=== PATIENT | female | born 1940 | race Caucasian/White ===

== ENCOUNTER → 2018-12-04 13:36 | Outpatient (CLI) | payer MEDICARE, OTHER, SELFPAY | PROVIDERS: Family Provider Internal Medicine; PCP Internal Medicine; Visit Provider Internal Medicine | DX: M85.851 Other specified disorders of bone density and structure, right thigh (principal); Z78.0 Asymptomatic menopausal state | CPT/HCPCS: 77080 ==

== ENCOUNTER → 2019-10-29 08:34 | Outpatient (CLI) | payer MEDICARE, OTHER, SELFPAY ==
--- NOTE | 2019-10-29 | DI.MG.S_ITS ---
BILATERAL DIGITAL SCREENING MAMMOGRAM 3D/2D WITH CAD: 10/29/2019 CLINICAL: Routine screening. Comparison is made to exam dated: 04/06/2014 [facility]. There are scattered fibroglandular elements in both breasts. Current study was also evaluated with a Computer Aided Detection (CAD) system. No significant masses, calcifications, or other findings are seen in either breast. There has been no significant interval change. IMPRESSION: NEGATIVE There is no mammographic evidence of malignancy. A 1 year screening mammogram is recommended. This exam was interpreted at Station ID: [id number]. NOTE: For mammograms, a report in lay terms will be sent to the patient. Approximately 15% of breast malignancies will not be visualized mammographically. In the management of a palpable breast mass, a negative mammogram must not discourage biopsy of a clinically suspicious lesion. Electronically Signed By: Cristina langford/parisa:10/29/2019 09:15:01 letter sent: Normal Exam ACR BI-RADS Category 1: Negative 3341F
== END ==
PROVIDERS: PCP Internal Medicine; Visit Provider Internal Medicine
DX: Z12.31 Encounter for screening mammogram for malignant neoplasm of breast (principal)
CPT/HCPCS: 77063; 77067

== ENCOUNTER → 2020-11-12 11:55 | Outpatient (CLI) | payer MEDICARE, OTHER, SELFPAY ==
--- NOTE | 2020-11-12 | DI.MG.S_ITS ---
BILATERAL DIGITAL SCREENING MAMMOGRAM 3D/2D WITH CAD: 11/12/2020 CLINICAL: Routine screening. Comparison is made to exams dated: 10/29/2019 mammogram, 04/06/2014 mammogram - [facility], 11/05/2012 mammogram, and 05/09/2010 mammogram - [facility]. There are scattered fibroglandular elements in both breasts. Current study was also evaluated with a Computer Aided Detection (CAD) system. There are benign calcifications in the right breast. There also are benign vascular calcifications in both breasts. No significant masses, calcifications, or other findings are seen in either breast. There has been no significant interval change. IMPRESSION: BENIGN There is no mammographic evidence of malignancy. A 1 year screening mammogram is recommended. This exam was interpreted at Station ID: [id number]. NOTE: For mammograms, a report in lay terms will be sent to the patient. Approximately 15% of breast malignancies will not be visualized mammographically. In the management of a palpable breast mass, a negative mammogram must not discourage biopsy of a clinically suspicious lesion. Electronically Signed By: Pete schultz/parisa:11/12/2020 14:34:11 letter sent: Normal Exam ACR BI-RADS Category 2: Benign Finding(s) 3342F
== END ==
PROVIDERS: PCP Internal Medicine; Referring Provider Internal Medicine; Visit Provider Internal Medicine
DX: Z12.31 Encounter for screening mammogram for malignant neoplasm of breast (principal)
CPT/HCPCS: 77063; 77067

== ENCOUNTER → 2021-02-11 19:13 | Outpatient (ROUT) | payer MEDICARE, OTHER, SELFPAY ==
[2021-02-11 20:06] LABS: Aspartate Aminotransferase 28 IU/L (14-36); Blood Urea Nitrogen 17 mg/dL (7-17); Calcium 9.7 mg/dL (8.4-10.2); Carbon Dioxide 25 mmol/L (22-32); Chloride 101 mmol/L (98-107); Cholesterol 224 mg/dL (140-199); Estimated Glomerular Filt Rate 53.1 mL/min (>60); Glucose 89 mg/dL (80-110); HDL Cholesterol 99 mg/dL (40-60); HEMOLYSIS < 15 (0-50); LDL Cholesterol Calculated 100 mg/dL (<100); Potassium 4.6 mmol/L (3.4-5.1); Sodium 135 mmol/L (137-145); Triglycerides 126 mg/dL (35-150)
== END ==
PROVIDERS: PCP Internal Medicine; Visit Provider Internal Medicine
DX: E78.2 Mixed hyperlipidemia (principal)
CPT/HCPCS: 80048; 80061; 84450

== ENCOUNTER → 2021-11-22 10:54 | Outpatient (CLI) | payer MEDICARE, OTHER, SELFPAY ==
--- NOTE | 2021-11-22 | DI.MG.S_ITS ---
BILATERAL DIGITAL SCREENING MAMMOGRAM 3D/2D WITH CAD: 11/22/2021 CLINICAL: Routine screening. Comparison is made to exams dated: 11/12/2020 mammogram, 10/29/2019 mammogram, and 04/06/2014 mammogram - [facility]. There are scattered fibroglandular elements in both breasts. Current study was also evaluated with a Computer Aided Detection (CAD) system. There are benign calcifications in the right breast. There also are benign vascular calcifications in both breasts. No significant masses, calcifications, or other findings are seen in either breast. There has been no significant interval change. IMPRESSION: BENIGN There is no mammographic evidence of malignancy. A 1 year screening mammogram is recommended. This exam was interpreted at Station ID: [id number]. NOTE: For mammograms, a report in lay terms will be sent to the patient. Approximately 15% of breast malignancies will not be visualized mammographically. In the management of a palpable breast mass, a negative mammogram must not discourage biopsy of a clinically suspicious lesion. Electronically Signed By: Jimmy gibson/parisa:11/22/2021 13:18:48 letter sent: Normal Exam ACR BI-RADS Category 2: Benign Finding(s) 3342F
== END ==
PROVIDERS: PCP Internal Medicine; Referring Provider Internal Medicine; Visit Provider Internal Medicine
DX: Z12.31 Encounter for screening mammogram for malignant neoplasm of breast (principal)
CPT/HCPCS: 77063; 77067

== ENCOUNTER → 2022-03-02 10:59 | Outpatient (CLI) | payer MEDICARE, OTHER, SELFPAY ==
--- NOTE | 2022-03-02 | DI.RAD.S_ITS ---
PROCEDURE: XR CHEST 2V INDICATIONS: Cough, unspecified TECHNIQUE: 2 views of the chest were acquired. COMPARISON: None. FINDINGS: Surgical changes and devices: None. Lungs and pleura: Lungs are clear. No pleural effusions or pneumothorax. Mediastinum: Mediastinal contours are normal. Heart size is normal. Bones and chest wall: No suspicious bony abnormalities. Soft tissues appear unremarkable. IMPRESSION: No acute cardiopulmonary process demonstrated radiographically. Dictated by: Richie Ng M.D. on 03/02/2022 at 15:18 Approved by: Richie Ng M.D. on 03/02/2022 at 15:22
== END ==
PROVIDERS: PCP Internal Medicine; Referring Provider Internal Medicine; Visit Provider Internal Medicine
DX: R05.9 Cough, unspecified (principal)
CPT/HCPCS: 71046

== ENCOUNTER 2023-03-11 13:22 | Inpatient (IN) | payer MEDICARE, OTHER, SELFPAY ==
[2023-03-11] VITALS (44 sets, daily range): BP systolic 92–131; BP diastolic 51–83; PULSE 84–125; RESP 16–35; TEMP 37.2–37.3; O2SAT 93–98; BMI 20.1
--- NOTE | 2023-03-11 13:32 | DI.RAD.S_ITS ---
PROCEDURE: XR CHEST 1V INDICATIONS: sepsis TECHNIQUE: One view of the chest was acquired. COMPARISON: [facility], CR, XR CHEST 2V, 03/02/2022, 10:53. FINDINGS: Surgical changes and devices: None. Lungs and pleura: Minimal left basilar atelectasis and or infiltrate. Remainder of the lungs and pleural spaces are clear. Mediastinum: Mediastinal contours appear normal. Heart size is normal. Bones and chest wall: No suspicious bony lesions. Overlying soft tissues appear unremarkable. IMPRESSION: Minimal left basilar atelectasis and or infiltrate Approved by: Facundo Dave M.D. on 03/11/2023 at 13:39
[2023-03-11 13:49] LABS: Add Manual Diff / Slide Review NO; Basophils Absolute Auto 0 /uL (0-100); Eosinophils Absolute Auto 300 /uL (0-450); Eosinophils Percent Auto 2.7 % (2-4); Hematocrit 44.3 % (36-46); Hemoglobin 15.6 g/dL (12.0-16.0); Lymphocytes Absolute Auto 400 /uL (1100-4500); Lymphocytes Percent Auto 3.7 % (25-40); Mean Corpuscular HGB Conc 35.1 % (30-36); Mean Corpuscular Hemoglobin 31.5 PG (26-34); Mean Corpuscular Volume 89.5 fL (80-100); Monocytes Absolute Auto 300 /uL (0-900); Neutrophils Absolute Auto 9500 /uL (1500-7000); Neutrophils Percent Auto 90.6 % (50-75); Platelet Count 190 X10^3/uL (150-400); Red Blood Cell Count 4.95 X10^6/uL (4.0-5.2); White Blood Cell Count 10.5 X10^3/uL (4.5-11.0)
--- NOTE | 2023-03-11 13:53 | ED_ITS ---
HPI - Weakness General Chief complaint: Weakness Stated complaint: sent by [facility], weak, low B/P Time Seen by Provider: 03/11/23 13:31 Source: family Mode of arrival: Wheelchair History of Present Illness HPI Narrative: 82-year-old female nonsmoker presents from the walk-in clinic for evaluation generalized weakness and concern for sepsis. The patient has been feeling generally weak and unwell over the course of the week and largely absent of any specific symptoms. She denies runny nose, sore throat or cough. She is had no chest pain or shortness of breath. She denies nausea, vomiting or diarrhea and has no urinary complaints such as dysuria, frequency or urgency. She does have a dermatologic condition and had been taking course of steroids and school age program associate put her on a course of minocycline as well but denies any other medication change or dietary change. She denies headache, blurred vision or neck pain. She has no other specific complaints. She just states she does not feel quite right Related Data Allergies Allergy/AdvReac Type Severity Reaction Status Date / Time fluorouracil [FLUOROURACIL] Allergy Intermediate SKINRX Verified 03/11/23 15:13 minocycline AdvReac Intermediate fatigue Verified 03/11/23 15:13 and nausea Review of Systems Review of Systems Narrative: GENERAL: See HPI HEENT: Denies sinus pain, ear pain, sore throat, difficulty swallowing, dizziness. RESPIRATORY: Denies dyspnea, cough, wheezing, hemoptysis, sputum. CARDIOVASCULAR: Denies chest pain, palpitations, orthopnea, edema, GASTROINTESTINAL: Denies nausea, vomiting, abdominal pain, diarrhea, constipation, melena. : Denies dysuria, frequency, incontinence, hematuria, urinary retention. MUSCULOSKELETAL: denies weakness, joint pain, or bony pain SKIN: Denies rash, skin lesions, or other NEUROLOGIC: See HPI PSYCHIATRIC: No concerning psychosocial issues. 12 point review of systems is negative except for those stated above Patient History Social History Smoking Status: Never smoker Smoking Status: Never smoker Exam Narrative Exam Narrative: GENERAL: [82] year old patient appears stated age. Well-developed patient, in mild distress. HEAD: Atraumatic. Normocephalic. EYES: Pupils equal round and reactive. Extraocular motions intact. No scleral icterus. No injection or drainage. ENT: Dry mucous membranes Nose without bleeding, purulent drainage. Throat without erythema, tonsillar hypertrophy or exudate. Airway patent. NECK: Trachea midline. Non tender CARDIOVASCULAR: Regular rate and rhythm without murmurs, gallops, or rubs. RESPIRATORY: Clear to auscultation. Breath sounds equal bilaterally. No wheezes, rales, or rhonchi. GASTROINTESTINAL: Abdomen soft, non-tender, nondistended. EXTREMITIES: No edema or joint tenderness. BACK: Nontender without deformity or crepitance. No flank tenderness. NEURO: AOx3. SKIN: Poor skin turgor No rash or erythema of visible areas Initial Vital Signs Initial Vital Signs: Vital Signs Temperature 99.2 F 03/11/23 13:29 Pulse Rate 125 H 03/11/23 13:29 Respiratory Rate 18 03/11/23 13:29 Blood Pressure 131/83 03/11/23 13:29 Pulse Oximetry 95 03/11/23 13:29 Oxygen Delivery Method Room Air 03/11/23 13:29 Course Orders Ordered: ED Orders 03/11/23 11:41 Ictotest Urine Stat Urinalysis and Microscopic Stat Urine Culture Stat 03/11/23 13:32 XR chest 1V Stat 03/11/23 13:38 Complete Blood Count AUTO DIFF Stat Comprehensive Metabolic Panel Stat Lactate (Lactic Acid) Stat Magnesium Urgent Procalcitonin Stat Troponin & CK Cardiac Panel Stat 03/11/23 13:45 Blood Culture Stat 03/11/23 13:57 EKG-12 Lead Stat 03/11/23 14:10 Creatinine Urine Random Stat Sodium Urine Random Stat 03/11/23 15:20 Respiratory Panel (Film Array) Stat Lactated Ringer's (Lactated Ringers) 1,545.84 mls @ 515.28 mls/hr 30 ml/kg infuse over 3 hr (1545.84 ml) IV NOW ONE Stop: 03/11/23 16:56 Last Admin: 03/11/23 14:16 Dose: 515.28 mls/hr Documented By: RB Discontinued Medications Ceftriaxone Sodium 2,000 mg/ (Sodium Chloride) 100 mls @ 200 mls/hr IV NOW ONE Stop: 03/11/23 13:59 Last Infusion: 03/11/23 15:00 Dose: 0 mls/hr Documented By: Admin: 03/11/23 14:16 Dose: 200 mls/hr Documented By: RB Azithromycin 500 mg/ Dextrose 250 mls @ 250 mls/hr IV NOW ONE Stop: 03/11/23 15:35 Vital Signs Vital signs: Vital Signs - 8 hr 03/11/23 13:29 03/11/23 13:33 03/11/23 13:45 Temperature 99.2 F Pulse Rate 125 H Respiratory Rate 18 Blood Pressure 131/83 131/83 119/62 Pulse Oximetry 95 Oxygen Delivery Method Room Air 03/11/23 13:45 03/11/23 13:50 03/11/23 13:50 Temperature Pulse Rate 105 H 112 H Respiratory Rate 24 Blood Pressure 99/71 Pulse Oximetry 94 95 Oxygen Delivery Method 03/11/23 13:55 03/11/23 13:55 03/11/23 14:00 Temperature Pulse Rate 109 H Respiratory Rate Blood Pressure 118/68 120/67 Pulse Oximetry 94 Oxygen Delivery Method 03/11/23 14:00 03/11/23 14:10 03/11/23 14:15 Temperature Pulse Rate 110 H 114 H Respiratory Rate 28 H Blood Pressure 116/59 L Pulse Oximetry 94 96 Oxygen Delivery Method 03/11/23 14:15 03/11/23 14:20 03/11/23 14:20 Temperature Pulse Rate 90 102 H Respiratory Rate 25 H 24 Blood Pressure 115/63 Pulse Oximetry 98 95 Oxygen Delivery Method 03/11/23 14:25 03/11/23 14:25 03/11/23 14:30 Temperature Pulse Rate 91 H Respiratory Rate 24 Blood Pressure 106/63 104/61 Pulse Oximetry 94 Oxygen Delivery Method 03/11/23 14:30 03/11/23 14:40 03/11/23 14:45 Temperature Pulse Rate 102 H 89 Respiratory Rate 24 21 Blood Pressure 100/58 L Pulse Oximetry 95 93 Oxygen Delivery Method 03/11/23 14:45 03/11/23 14:50 03/11/23 14:55 Temperature Pulse Rate 102 H 98 H 98 H Respiratory Rate 26 H 19 18 Blood Pressure Pulse Oximetry 93 95 96 Oxygen Delivery Method 03/11/23 15:00 03/11/23 15:00 03/11/23 15:05 Temperature Pulse Rate 85 96 H Respiratory Rate 20 29 H Blood Pressure 99/56 L Pulse Oximetry 94 97 Oxygen Delivery Method 03/11/23 15:10 03/11/23 15:15 03/11/23 15:15 Temperature Pulse Rate 91 H 101 H Respiratory Rate 30 H 31 H Blood Pressure 116/61 Pulse Oximetry 95 95 Oxygen Delivery Method 03/11/23 15:20 03/11/23 15:25 03/11/23 15:30 Temperature Pulse Rate 88 90 Respiratory Rate 26 H 33 H Blood Pressure 108/59 L Pulse Oximetry 95 97 Oxygen Delivery Method 03/11/23 15:30 03/11/23 15:35 03/11/23 15:40 Temperature Pulse Rate 89 90 89 Respiratory Rate 28 H 35 H 28 H Blood Pressure Pulse Oximetry 96 95 97 Oxygen Delivery Method MDM - Weakness Lab Data 03/11/23 13:38 03/11/23 13:38 Labs: Lab Results 03/11/23 03/11/23 03/11/23 Range/Units 11:41 13:38 13:38 WBC 10.5 (4.5-11.0) X10^3/uL RBC 4.95 (4.0-5.2) X10^6/uL Hgb 15.6 (12.0-16.0) g/dL Hct 44.3 (36-46) % MCV 89.5 (80-100) fL MCH 31.5 (26-34) PG MCHC 35.1 (30-36) % RDW 15.0 H (11.6-14.8) % Plt Count 190 (150-400) X10^3/uL Neut % (Auto) 90.6 H (50-75) % Lymph % (Auto) 3.7 L (25-40) % [place] % (Auto) 3.0 (3-14) % Eos % (Auto) 2.7 (2-4) % Baso % (Auto) 0.0 (0-2) % Neut # (Auto) 9500 H (1952-4633) /uL Lymph # (Auto) 400 L (1770-2415) /uL [place] # (Auto) 300 (0-900) /uL Eos # (Auto) 300 (0-450) /uL Baso # (Auto) 0 (0-100) /uL Sodium 125 L (137-145) mmol/L Potassium 4.1 (3.4-5.1) mmol/L Chloride 92 L (98-107) mmol/L Carbon Dioxide 23 (22-32) mmol/L BUN 21 H (7-17) mg/dL Creatinine 1.18 H (0.52-1.04) mg/dL Estimated GFR 46 L (>60) mL/min BUN/Creatinine Ratio 17.8 (6-22) Glucose 128 H (80-110) mg/dL Lactate (0.7-2.1) mmol/L Calcium 8.7 (8.4-10.2) mg/dL Total Bilirubin 0.9 (0.2-1.3) mg/dL AST 35 (14-36) IU/L ALT 37 H (<35) IU/L Alkaline Phosphatase 73 (38-126) U/L Total Creatine Kinase 51 (30-135) U/L CK-MB (CK-2) TNP CK-MB (CK-2) Rel Index TNP Troponin I 0.030 (0.01-0.034) ng/mL Total Protein 7.0 (6.3-8.2) g/dL Albumin 3.9 (3.5-5.0) g/dL Globulin 3.1 (1.7-4.1) g/dL Albumin/Globulin Ratio 1.3 (1.0-2.8) Procalcitonin 0.80 H (<0.5) ng/mL Urine Color Yellow Urine Appearance Clear Urine pH 5.5 (4.5-8.0) Ur Specific [place] >=1.030 H (1.000-1.035) Urine Protein 2+ H (Negative) Urine Glucose (UA) Negative (Negative) g/dL Urine Ketones Trace H (NEGATIVE) Urine Occult Blood Trace-intact (Negative) Urine Nitrate Negative (Negative) Urine Bilirubin 1+ H (NEGATIVE) Ur Bilirubin Confirm Negative (Negative) Urine Urobilinogen 1.0 (0.2) E.U./dL Ur Leukocyte Esterase Negative (NEGATIVE) Urine RBC 5-10/hpf H (0-5/HPF) Urine WBC 5-10/hpf H (0-5/HPF) Ur Squamous Epith Cells 1-5 /hpf (0-5/HPF) Ur Transition Epith Cell 5-10/hpf H (0-5/HPF) Urine Bacteria Few (2-10) H (None) Ur Culture Indicated? Specimen cultured 03/11/23 Range/Units 13:38 WBC (4.5-11.0) X10^3/uL RBC (4.0-5.2) X10^6/uL Hgb (12.0-16.0) g/dL Hct (36-46) % MCV (80-100) fL MCH (26-34) PG MCHC (30-36) % RDW (11.6-14.8) % Plt Count (150-400) X10^3/uL Neut % (Auto) (50-75) % Lymph % (Auto) (25-40) % [place] % (Auto) (3-14) % Eos % (Auto) (2-4) % Baso % (Auto) (0-2) % Neut # (Auto) (3148-6954) /uL Lymph # (Auto) (3592-2811) /uL [place] # (Auto) (0-900) /uL Eos # (Auto) (0-450) /uL Baso # (Auto) (0-100) /uL Sodium (137-145) mmol/L Potassium (3.4-5.1) mmol/L Chloride (98-107) mmol/L Carbon Dioxide (22-32) mmol/L BUN (7-17) mg/dL Creatinine (0.52-1.04) mg/dL Estimated GFR (>60) mL/min BUN/Creatinine Ratio (6-22) Glucose (80-110) mg/dL Lactate 1.6 (0.7-2.1) mmol/L Calcium (8.4-10.2) mg/dL Total Bilirubin (0.2-1.3) mg/dL AST (14-36) IU/L ALT (<35) IU/L Alkaline Phosphatase (38-126) U/L Total Creatine Kinase (30-135) U/L CK-MB (CK-2) CK-MB (CK-2) Rel Index Troponin I (0.01-0.034) ng/mL Total Protein (6.3-8.2) g/dL Albumin (3.5-5.0) g/dL Globulin (1.7-4.1) g/dL Albumin/Globulin Ratio (1.0-2.8) Procalcitonin (<0.5) ng/mL Urine Color Urine Appearance Urine pH (4.5-8.0) Ur Specific [place] (1.000-1.035) Urine Protein (Negative) Urine Glucose (UA) (Negative) g/dL Urine Ketones (NEGATIVE) Urine Occult Blood (Negative) Urine Nitrate (Negative) Urine Bilirubin (NEGATIVE) Ur Bilirubin Confirm (Negative) Urine Urobilinogen (0.2) E.U./dL Ur Leukocyte Esterase (NEGATIVE) Urine RBC (0-5/HPF) Urine WBC (0-5/HPF) Ur Squamous Epith Cells (0-5/HPF) Ur Transition Epith Cell (0-5/HPF) Urine Bacteria (None) Ur Culture Indicated? Urine Dip Bedside Urine Glucose Negative Bedside Urine Bilirubin - Negative Bedside Urine Ketone +/- 5 Urine Specific [place] 1.030 Bedside Urine Occult Blood - Negative Bedside Urine pH 6.0 Bedside Urine Protein + 30 Bedside Urine Urobilinogen - Negative Bedside Urine Nitrite - Negative Bedside Urine Leukocytes +/- 15 Esterase MDM Narrative Medical decision making narrative: 82-year-old female presents with family from the walk-in clinic for evaluation of increasing weakness, generally feeling unwell and some mild confusion. She is very nonspecific complaints otherwise. She has dry mucous membranes and poor skin turgor in his found to be tachycardic, slightly tachypneic with a temp of 99.2?. She is activated as a sepsis alert and has early blood cultures, lactate, fluids at 30 cc/kilogram and is given Rocephin. She is found to be hyponatremic but labs are otherwise largely unremarkable. Chest x-ray suggests the possibility of a mild infiltrate, urine is likely not a clean sample but there are some white blood cells. Upon receipt of chest x-ray azithromycin was added. Patient requires hospitalization for treatment of hyponatremia and sepsis. Patient and family understand and agree with the diagnosis and plan. Dr. Molina is happy to accept patient on his service Discharge Plan Departure Patient Disposition: Admitted As Inpatient Clinical Impression: Sepsis, Acute dehydration, Acute hyponatremia Admit Date/Time: 03/11/23 15:40 Admit Provider: Giacomo Molina
[2023-03-11 13:57] LABS: Lactate (Lactic Acid) 1.6 mmol/L (0.7-2.1)
[2023-03-11 13:58] LABS: Alanine Aminotransferase 37 IU/L (<35); Albumin 3.9 g/dL (3.5-5.0); Albumin Globulin Ratio 1.3 (1.0-2.8); Alkaline Phosphatase 73 U/L (38-126); Aspartate Aminotransferase 35 IU/L (14-36); BUN Creatinine Ratio 17.8 (6-22); Bilirubin Total 0.9 mg/dL (0.2-1.3); Blood Urea Nitrogen 21 mg/dL (7-17); Calcium 8.7 mg/dL (8.4-10.2); Carbon Dioxide 23 mmol/L (22-32); Chloride 92 mmol/L (98-107); Creatine Kinase 51 U/L (30-135); Estimated Glomerular Filt Rate 46 mL/min (>60); Globulin 3.1 g/dL (1.7-4.1); Glucose 128 mg/dL (80-110); HEMOLYSIS < 15 (0-50); Potassium 4.1 mmol/L (3.4-5.1); Sodium 125 mmol/L (137-145)
[2023-03-11] MEDS: cefTRIAXone 2,000 MG in SODIUM CHLORIDE 0.9% 100 ML 200 MG IV (14:16)
[2023-03-11] MEDS: LACTATED RINGERS 515.28 ML IV (14:16)
[2023-03-11 14:53] LABS: Appearance Urine UA CLEAR; Bilirubin Urine UA 1+ (NEGATIVE); Color Urine UA YELLOW; Glucose Urine UA NEGATIVE (Negative); Ketones Urine UA TRACE (NEGATIVE); Leukocyte Esterase Urine UA NEGATIVE (NEGATIVE); Nitrite Urine UA NEGATIVE (Negative); Occult Blood Urine UA TRACE-INTACT (Negative); Protein Urine UA 2+ (Negative); Specific Gravity Urine UA >=1.030 (1.000-1.035)
[2023-03-11 14:55] LABS: pH Urine UA 5.5 (4.5-8.0)
[2023-03-11 14:56] LABS: Ictotest Urine Negative (Negative)
[2023-03-11 15:03] LABS: Bacteria Urine Few (2-10); Culture Indicated Urine Specimen Cultured; RBC Urine 5-10/HPF (0-5/HPF); Squamous Epithelial Cell Urine 1-5 /HPF (0-5/HPF); Transitional Epi Cells Urine 5-10/HPF (0-5/HPF); WBC Urine 5-10/HPF (0-5/HPF)
[2023-03-11] MEDS: AZITHROMYCIN 500 MG in DEXTROSE 5% IN WATER 250 ML 250 MG IV (15:45)
--- NOTE | 2023-03-11 15:47 | PM.HP.1 ---
History of Present Illness History of Present Illness Date Patient Seen: 03/11/23 Time Patient Seen: 18:00 Chief complaint: sent by [facility], weak, low B/P Narrative: Blanca Tang is an 82yo F with PMH of bullous pemphigoid followed by derm who presents with increased urinary frequency, weakness and lack of appetite for 5 days. Patient states she began feeling poorly last week while taking minocycline for her bullous pemphigoid. She was directed to stop taking it by derm and she thought after she would feel better but she didn't. She had progressive weakness and poor po intake and has eaten or drank very little in 5 days. She also notes a mild cough recently. She is normally active and gardening so this is unlike her. She denies NV, diarrhea, CP, SOB, abd pain, headache, dizziness or visual changes. In the ED patient was found to have a sodium of 125, Cr 1.18, with dry mucous membranes and be hypotensive to 92/70. Mildly elevated temp of 99.2F. She received 1.5L fluid bolus. CXR showed possible PNA vs atelectasis. UA with pyuria but squamous cells present. [facility] Social History household members: none Smoking Status: Never smoker alcohol intake: current Meds Home Medications and Allergies Home Medications Medication Instructions Recorded Confirmed Type calcium 500 mg tablet 500 mg PO DAILY 03/11/23 03/11/23 History cholecalciferol (vitamin D3) 50 50 mcg PO DAILY 03/11/23 03/11/23 History mcg (2,000 unit) capsule (Vitamin D3) minocycline 100 mg capsule 100 mg PO BID 03/11/23 03/11/23 History niacinamide 500 mg tablet,extended 500 mg PO DAILY 03/11/23 03/11/23 History release prednisone 10 mg tablet 10 mg PO DAILY 03/11/23 03/11/23 History rosuvastatin 5 mg tablet 5 mg PO 3XW 03/11/23 03/11/23 History vitamin B complex (B 1 tab PO 2XW 03/11/23 03/11/23 History Complex-Vitamin B12 tablet) Allergies Allergy/AdvReac Type Severity Reaction Status Date / Time fluorouracil [FLUOROURACIL] Allergy Intermediate SKINRX Verified 03/11/23 15:13 minocycline AdvReac Intermediate fatigue Verified 03/11/23 15:13 and nausea Review of Systems Review of Systems Narrative: All other systems reviewed with the patient and are negative unless otherwise stated. Exam Vital Signs (past 8 hours): - 03/11/23 13:29 03/11/23 13:33 03/11/23 13:45 Temperature 99.2 F Pulse Rate 125 H Respiratory Rate 18 Blood Pressure 131/83 131/83 119/62 Pulse Oximetry 95 Oxygen Delivery Method Room Air 03/11/23 13:45 03/11/23 13:50 03/11/23 13:50 Temperature Pulse Rate 105 H 112 H Respiratory Rate 24 Blood Pressure 99/71 Pulse Oximetry 94 95 Oxygen Delivery Method 03/11/23 13:55 03/11/23 13:55 03/11/23 14:00 Temperature Pulse Rate 109 H Respiratory Rate Blood Pressure 118/68 120/67 Pulse Oximetry 94 Oxygen Delivery Method 03/11/23 14:00 03/11/23 14:10 03/11/23 14:15 Temperature Pulse Rate 110 H 114 H Respiratory Rate 28 H Blood Pressure 116/59 L Pulse Oximetry 94 96 Oxygen Delivery Method 03/11/23 14:15 03/11/23 14:20 03/11/23 14:20 Temperature Pulse Rate 90 102 H Respiratory Rate 25 H 24 Blood Pressure 115/63 Pulse Oximetry 98 95 Oxygen Delivery Method 03/11/23 14:25 03/11/23 14:25 03/11/23 14:30 Temperature Pulse Rate 91 H Respiratory Rate 24 Blood Pressure 106/63 104/61 Pulse Oximetry 94 Oxygen Delivery Method 03/11/23 14:30 03/11/23 14:40 03/11/23 14:45 Temperature Pulse Rate 102 H 89 Respiratory Rate 24 21 Blood Pressure 100/58 L Pulse Oximetry 95 93 Oxygen Delivery Method 03/11/23 14:45 03/11/23 14:50 03/11/23 14:55 Temperature Pulse Rate 102 H 98 H 98 H Respiratory Rate 26 H 19 18 Blood Pressure Pulse Oximetry 93 95 96 Oxygen Delivery Method 03/11/23 15:00 03/11/23 15:00 03/11/23 15:05 Temperature Pulse Rate 85 96 H Respiratory Rate 20 29 H Blood Pressure 99/56 L Pulse Oximetry 94 97 Oxygen Delivery Method 03/11/23 15:10 03/11/23 15:15 03/11/23 15:15 Temperature Pulse Rate 91 H 101 H Respiratory Rate 30 H 31 H Blood Pressure 116/61 Pulse Oximetry 95 95 Oxygen Delivery Method 03/11/23 15:20 Temperature Pulse Rate 88 Respiratory Rate 26 H Blood Pressure Pulse Oximetry 95 Oxygen Delivery Method Oxygen Delivery Method Room Air Narrative Exam Narrative: GEN: no acute distress, appears pale, fatigued HEENT: moist mucous membranes, PERRL NECK: trachea midline, no JVD CV: regular rate and rhythm, no murmurs PULM: clear bilaterally ABD: soft, nontender, nondistended, no organomegaly EXT: warm and well perfused with no edema NEURO: awake, alert, oriented, no focal deficits Objective Labs 03/11/23 13:38 03/11/23 13:38 Labs: Laboratory Results - last 24 hr 03/11/23 03/11/23 03/11/23 11:41 13:38 13:38 WBC 10.5 RBC 4.95 Hgb 15.6 Hct 44.3 MCV 89.5 MCH 31.5 MCHC 35.1 RDW 15.0 H Plt Count 190 Neut % (Auto) 90.6 H Lymph % (Auto) 3.7 L [place] % (Auto) 3.0 Eos % (Auto) 2.7 Baso % (Auto) 0.0 Neut # (Auto) 9500 H Lymph # (Auto) 400 L [place] # (Auto) 300 Eos # (Auto) 300 Baso # (Auto) 0 Sodium 125 L Potassium 4.1 Chloride 92 L Carbon Dioxide 23 BUN 21 H Creatinine 1.18 H Estimated GFR 46 L BUN/Creatinine Ratio 17.8 Glucose 128 H Lactate Calcium 8.7 Total Bilirubin 0.9 AST 35 ALT 37 H Alkaline Phosphatase 73 Total Creatine Kinase 51 CK-MB (CK-2) TNP CK-MB (CK-2) Rel Index TNP Troponin I 0.030 Total Protein 7.0 Albumin 3.9 Globulin 3.1 Albumin/Globulin Ratio 1.3 Procalcitonin 0.80 H Urine Color Yellow Urine Appearance Clear Urine pH 5.5 Ur Specific [place] >=1.030 H Urine Protein 2+ H Urine Glucose (UA) Negative Urine Ketones Trace H Urine Occult Blood Trace-intact Urine Nitrate Negative Urine Bilirubin 1+ H Ur Bilirubin Confirm Negative Urine Urobilinogen 1.0 Ur Leukocyte Esterase Negative Urine RBC 5-10/hpf H Urine WBC 5-10/hpf H Ur Squamous Epith Cells 1-5 /hpf Ur Transition Epith Cell 5-10/hpf H Urine Bacteria Few (2-10) H Ur Culture Indicated? Specimen cultured 03/11/23 13:38 WBC RBC Hgb Hct MCV MCH MCHC RDW Plt Count Neut % (Auto) Lymph % (Auto) [place] % (Auto) Eos % (Auto) Baso % (Auto) Neut # (Auto) Lymph # (Auto) [place] # (Auto) Eos # (Auto) Baso # (Auto) Sodium Potassium Chloride Carbon Dioxide BUN Creatinine Estimated GFR BUN/Creatinine Ratio Glucose Lactate 1.6 Calcium Total Bilirubin AST ALT Alkaline Phosphatase Total Creatine Kinase CK-MB (CK-2) CK-MB (CK-2) Rel Index Troponin I Total Protein Albumin Globulin Albumin/Globulin Ratio Procalcitonin Urine Color Urine Appearance Urine pH Ur Specific [place] Urine Protein Urine Glucose (UA) Urine Ketones Urine Occult Blood Urine Nitrate Urine Bilirubin Ur Bilirubin Confirm Urine Urobilinogen Ur Leukocyte Esterase Urine RBC Urine WBC Ur Squamous Epith Cells Ur Transition Epith Cell Urine Bacteria Ur Culture Indicated? Assessment & Plan Assessment & Plan narrative: # acute hyponatremia -Na 125 on admission, previously 135 in 2020 -likely hypovolemic hyponatremia due to lack of po intake and urine sodium low at 14 -LR 1.5L bolus given in ED -start 100cc/hr NS IVF -daily BMP's # possible PNA and UTI -patient notes mild cough, urinary frequency -CXR with minimal left basilar infiltrate vs atelectasis -procal elevated at 0.8 suggesting active infection -continue rocephin and azithro -UA with pyuria but squam's present -f/u urine culture # fatigue and weakness -likely due to PNA, UTI and hyponatremia -PT/OT evals # bullous pemphigoid -followed by derm -previously on prednisone then minocycline Code status is DNR. DVT prophylaxis with heparin subQ. Proxy is son Domingo. I have reviewed home meds and used all available resources to reconcile the home meds. This patient will be admitted as inpatient and will require greater than 2 midnights of hospital time to treat hyponatremia, pneumonia and UTI.
[2023-03-11 16:03] LABS: Creatinine Urine Random 319.5 mg/dL; Sodium Urine Random 14 mmol/L (30-90)
[2023-03-11 16:12] LABS: Magnesium 1.9 mg/dL (1.6-2.3)
[2023-03-11 16:29] LABS: Adenovirus Not Detected (Not Detect); B. parapertussis Not Detected (Not Detecte); Bordetella pertussis Not Detected (Not Detecte); Chlamydophila pneumoniae Not Detected (Not Detect); Coronavirus 229E Not Detected (Not Detect); Coronavirus HKU1 Not Detected (Not Detect); Coronavirus NL 63 Not Detected (Not Detect); Coronavirus OC43 Not Detected (Not Detect); Human Metapneumovirus Not Detected (Not Detect); Human Rhinovirus/Enterovirus Not Detected (Not Detect); Influenza A Not Detected (Not Detect); Influenza B Not Detected (Not Detect); Mycoplasma pneumoniae Not Detected (Not Detect); Parainfluenza Virus 1 Not Detected (Not Detect); Parainfluenza Virus 2 Not Detected (Not Detect); Parainfluenza Virus 3 Not Detected (Not Detect); Parainfluenza Virus 4 Not Detected (Not Detect); Respiratory Syncytial Virus Not Detected (Not Detect); SARS- CoV-2 Not Detected (Not Detecte)
[2023-03-11 16:43] LABS: TSH w/ Reflex to FT4 3.19 uIU/mL (0.47-4.68)
[2023-03-11] MEDS: SODIUM CHLORIDE 0.9% 1,000 ML 100 ML IV (18:19)
[2023-03-11] MEDS: HEPARIN 5,000 UNIT/ML VIAL 5000 UNIT SUBCUT (20:34)
[2023-03-12 02:00] VITALS: BP 113/59; PULSE 76; RESP 16; TEMP 37; O2SAT 94
[2023-03-12] MEDS: SODIUM CHLORIDE 0.9% 1,000 ML 100 ML IV (04:11)
[2023-03-12 05:48] LABS: Add Manual Diff / Slide Review NO; Basophils Absolute Auto 0 /uL (0-100); Basophils Percent Auto 0.3 % (0-2); Eosinophils Absolute Auto 300 /uL (0-450); Eosinophils Percent Auto 4.4 % (2-4); Hematocrit 30.9 % (36-46); Hemoglobin 10.9 g/dL (12.0-16.0); Lymphocytes Absolute Auto 600 /uL (1100-4500); Lymphocytes Percent Auto 8.7 % (25-40); Mean Corpuscular HGB Conc 35.4 % (30-36); Mean Corpuscular Hemoglobin 31.5 PG (26-34); Mean Corpuscular Volume 89.1 fL (80-100); Monocytes Absolute Auto 400 /uL (0-900); Monocytes Percent Auto 5.1 % (3-14); Neutrophils Absolute Auto 5700 /uL (1500-7000); Neutrophils Percent Auto 81.5 % (50-75); Platelet Count 144 X10^3/uL (150-400); Red Blood Cell Count 3.47 X10^6/uL (4.0-5.2); Red Cell Distribution Width 14.5 % (11.6-14.8)
[2023-03-12 05:52] LABS: BUN Creatinine Ratio 18.5 (6-22); Blood Urea Nitrogen 17 mg/dL (7-17); Calcium 7.2 mg/dL (8.4-10.2); Carbon Dioxide 21 mmol/L (22-32); Chloride 96 mmol/L (98-107); Estimated Glomerular Filt Rate > 60 mL/min (>60); Glucose 99 mg/dL (80-110); HEMOLYSIS < 15 (0-50); Potassium 3.7 mmol/L (3.4-5.1); Sodium 122 mmol/L (137-145)
--- NOTE | 2023-03-12 08:29 | P.PN_ITS ---
Subjective Subjective Interval history: Patient's sodium dipped from 125 to 122 after IVF overnight. She says she doesn't feel much better today. Placed on fluid restriction and salt tabs and IVF stopped. Exam Vital Signs (past 8 hours): - 03/12/23 02:00 Temperature 98.6 F Pulse Rate 76 Respiratory Rate 16 Blood Pressure 113/59 L Pulse Oximetry 94 Oxygen Delivery Method Room Air Oxygen Flow Rate 0 Narrative Exam Narrative: GEN: no acute distress, appears ill, fatigued HEENT: moist mucous membranes, PERRL NECK: trachea midline, no JVD CV: regular rate and rhythm, no murmurs PULM: clear bilaterally ABD: soft, nontender, nondistended, no organomegaly EXT: warm and well perfused with no edema NEURO: awake, alert, oriented, no focal deficits Objective Labs 03/12/23 04:50 03/12/23 15:01 Labs: Laboratory Results - last 24 hr 03/11/23 03/11/23 03/11/23 11:41 13:38 13:38 WBC 10.5 RBC 4.95 Hgb 15.6 Hct 44.3 MCV 89.5 MCH 31.5 MCHC 35.1 RDW 15.0 H Plt Count 190 Neut % (Auto) 90.6 H Lymph % (Auto) 3.7 L [place] % (Auto) 3.0 Eos % (Auto) 2.7 Baso % (Auto) 0.0 Neut # (Auto) 9500 H Lymph # (Auto) 400 L [place] # (Auto) 300 Eos # (Auto) 300 Baso # (Auto) 0 Sodium 125 L Potassium 4.1 Chloride 92 L Carbon Dioxide 23 BUN 21 H Creatinine 1.18 H Estimated GFR 46 L BUN/Creatinine Ratio 17.8 Glucose 128 H Lactate Calcium 8.7 Magnesium Total Bilirubin 0.9 AST 35 ALT 37 H Alkaline Phosphatase 73 Total Creatine Kinase 51 CK-MB (CK-2) TNP CK-MB (CK-2) Rel Index TNP Troponin I 0.030 Total Protein 7.0 Albumin 3.9 Globulin 3.1 Albumin/Globulin Ratio 1.3 Procalcitonin 0.80 H TSH Urine Color Yellow Urine Appearance Clear Urine pH 5.5 Ur Specific [place] >=1.030 H Urine Protein 2+ H Urine Glucose (UA) Negative Urine Ketones Trace H Urine Occult Blood Trace-intact Urine Nitrate Negative Urine Bilirubin 1+ H Ur Bilirubin Confirm Negative Urine Urobilinogen 1.0 Ur Leukocyte Esterase Negative Urine RBC 5-10/hpf H Urine WBC 5-10/hpf H Ur Squamous Epith Cells 1-5 /hpf Ur Transition Epith Cell 5-10/hpf H Urine Bacteria Few (2-10) H Ur Culture Indicated? Specimen cultured Ur Random Sodium Urine Creatinine Chlamy pneumoniae PCR Adenovirus (PCR) B. pertussis DNA (PCR) B.parapertussis DNA PCR Coronavirus OC43 (PCR) Coronavirus HKU1 (PCR) Coronavirus 229E (PCR) SARS-CoV-2 (PCR) Coronavirus NL63 (PCR) Human Metapneumovir PCR Influenza Type A (PCR) Influenza Type B (PCR) M. pneumoniae (PCR) Parainfluenza 1 (PCR) Parainfluenza 2 (PCR) Parainfluenza 3 (PCR) Parainfluenza 4 (PCR) RSV (PCR) Entero/Rhino (PCR) 03/11/23 03/11/23 03/11/23 13:38 13:38 13:38 WBC RBC Hgb Hct MCV MCH MCHC RDW Plt Count Neut % (Auto) Lymph % (Auto) [place] % (Auto) Eos % (Auto) Baso % (Auto) Neut # (Auto) Lymph # (Auto) [place] # (Auto) Eos # (Auto) Baso # (Auto) Sodium Potassium Chloride Carbon Dioxide BUN Creatinine Estimated GFR BUN/Creatinine Ratio Glucose Lactate 1.6 Calcium Magnesium 1.9 Total Bilirubin AST ALT Alkaline Phosphatase Total Creatine Kinase CK-MB (CK-2) CK-MB (CK-2) Rel Index Troponin I Total Protein Albumin Globulin Albumin/Globulin Ratio Procalcitonin TSH 3.19 Urine Color Urine Appearance Urine pH Ur Specific [place] Urine Protein Urine Glucose (UA) Urine Ketones Urine Occult Blood Urine Nitrate Urine Bilirubin Ur Bilirubin Confirm Urine Urobilinogen Ur Leukocyte Esterase Urine RBC Urine WBC Ur Squamous Epith Cells Ur Transition Epith Cell Urine Bacteria Ur Culture Indicated? Ur Random Sodium Urine Creatinine Chlamy pneumoniae PCR Adenovirus (PCR) B. pertussis DNA (PCR) B.parapertussis DNA PCR Coronavirus OC43 (PCR) Coronavirus HKU1 (PCR) Coronavirus 229E (PCR) SARS-CoV-2 (PCR) Coronavirus NL63 (PCR) Human Metapneumovir PCR Influenza Type A (PCR) Influenza Type B (PCR) M. pneumoniae (PCR) Parainfluenza 1 (PCR) Parainfluenza 2 (PCR) Parainfluenza 3 (PCR) Parainfluenza 4 (PCR) RSV (PCR) Entero/Rhino (PCR) 03/11/23 03/11/23 03/12/23 14:10 15:20 04:50 WBC 7.0 RBC 3.47 L Hgb 10.9 L Hct 30.9 L MCV 89.1 MCH 31.5 MCHC 35.4 RDW 14.5 Plt Count 144 L Neut % (Auto) 81.5 H Lymph % (Auto) 8.7 L [place] % (Auto) 5.1 Eos % (Auto) 4.4 H Baso % (Auto) 0.3 Neut # (Auto) 5700 Lymph # (Auto) 600 L [place] # (Auto) 400 Eos # (Auto) 300 Baso # (Auto) 0 Sodium Potassium Chloride Carbon Dioxide BUN Creatinine Estimated GFR BUN/Creatinine Ratio Glucose Lactate Calcium Magnesium Total Bilirubin AST ALT Alkaline Phosphatase Total Creatine Kinase CK-MB (CK-2) CK-MB (CK-2) Rel Index Troponin I Total Protein Albumin Globulin Albumin/Globulin Ratio Procalcitonin TSH Urine Color Urine Appearance Urine pH Ur Specific [place] Urine Protein Urine Glucose (UA) Urine Ketones Urine Occult Blood Urine Nitrate Urine Bilirubin Ur Bilirubin Confirm Urine Urobilinogen Ur Leukocyte Esterase Urine RBC Urine WBC Ur Squamous Epith Cells Ur Transition Epith Cell Urine Bacteria Ur Culture Indicated? Ur Random Sodium 14 L Urine Creatinine 319.5 Chlamy pneumoniae PCR Not detected Adenovirus (PCR) Not detected B. pertussis DNA (PCR) Not detected B.parapertussis DNA PCR Not detected Coronavirus OC43 (PCR) Not detected Coronavirus HKU1 (PCR) Not detected Coronavirus 229E (PCR) Not detected SARS-CoV-2 (PCR) Not detected Coronavirus NL63 (PCR) Not detected Human Metapneumovir PCR Not detected Influenza Type A (PCR) Not detected Influenza Type B (PCR) Not detected M. pneumoniae (PCR) Not detected Parainfluenza 1 (PCR) Not detected Parainfluenza 2 (PCR) Not detected Parainfluenza 3 (PCR) Not detected Parainfluenza 4 (PCR) Not detected RSV (PCR) Not detected Entero/Rhino (PCR) Not detected 03/12/23 04:50 WBC RBC Hgb Hct MCV MCH MCHC RDW Plt Count Neut % (Auto) Lymph % (Auto) [place] % (Auto) Eos % (Auto) Baso % (Auto) Neut # (Auto) Lymph # (Auto) [place] # (Auto) Eos # (Auto) Baso # (Auto) Sodium 122 L Potassium 3.7 Chloride 96 L Carbon Dioxide 21 L BUN 17 Creatinine 0.92 Estimated GFR > 60 BUN/Creatinine Ratio 18.5 Glucose 99 Lactate Calcium 7.2 L Magnesium Total Bilirubin AST ALT Alkaline Phosphatase Total Creatine Kinase CK-MB (CK-2) CK-MB (CK-2) Rel Index Troponin I Total Protein Albumin Globulin Albumin/Globulin Ratio Procalcitonin 0.70 H TSH Urine Color Urine Appearance Urine pH Ur Specific [place] Urine Protein Urine Glucose (UA) Urine Ketones Urine Occult Blood Urine Nitrate Urine Bilirubin Ur Bilirubin Confirm Urine Urobilinogen Ur Leukocyte Esterase Urine RBC Urine WBC Ur Squamous Epith Cells Ur Transition Epith Cell Urine Bacteria Ur Culture Indicated? Ur Random Sodium Urine Creatinine Chlamy pneumoniae PCR Adenovirus (PCR) B. pertussis DNA (PCR) B.parapertussis DNA PCR Coronavirus OC43 (PCR) Coronavirus HKU1 (PCR) Coronavirus 229E (PCR) SARS-CoV-2 (PCR) Coronavirus NL63 (PCR) Human Metapneumovir PCR Influenza Type A (PCR) Influenza Type B (PCR) M. 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 -Na 125 on admission, previously 135 in 2020 -despite urine sodium low at 14 and hypovolemia suspected, Na dropped to 122 overnight with fluids -start 1L daily fluid restriction, 1g salt tabs BID -hold IVF's -Na improved to 125 after 12 hours of fluid restriction and salt tabs -daily BMP's # possible PNA, UTI ruled out -patient notes mild cough, urinary frequency -CXR with minimal left basilar infiltrate vs atelectasis -procal elevated at 0.8 suggesting active infection -continue rocephin and azithro -UA with pyuria but squam's present -urine culture with no growth # fatigue and weakness -likely due to PNA, UTI and hyponatremia -PT/OT evals # 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 Code status is DNR. DVT prophylaxis with heparin subQ. Proxy is wanda Lane. Dispo: Home likely with HH in 1-2 days pending improvement in sodium and fatigue.
[2023-03-12] MEDS: AZITHROMYCIN 250 MG TABLET 500 MG PO (09:37)
[2023-03-12] MEDS: cefTRIAXone 1,000 MG in SODIUM CHLORIDE 0.9% 100 ML 200 MG IV (09:37)
[2023-03-12] MEDS: SODIUM CHLORIDE 1,000 MG TABLET 1000 MG PO ×2 (09:37→17:48)
[2023-03-12] MEDS: HEPARIN 5,000 UNIT/ML VIAL 5000 UNIT SUBCUT ×2 (09:38→20:50)
--- NOTE | 2023-03-12 12:14 | PC.NURSE ---
Assess- Patient is alert and oriented x4, she states that she does not feel any better then when being admitted. Na level is 122. Sodium tablets started today and patient tolerated this well. Son and his stopped over to visit and bring advance directive paperwork which has been copied and placed in patients chart. She is napping now and will be getting ready for lunch.
[2023-03-12 12:42] VITALS: BP 91/45; PULSE 81; RESP 16; TEMP 37.6; O2SAT 92
--- NOTE | 2023-03-12 13:19 | PT-IP ANOTE ---
Hold PT d/t fever 99.7 deg F and hypotension 91/45 and then 83/45 this date. Con't efforts a later date.
--- NOTE | 2023-03-12 13:54 | OT.IPNOTE ---
Attempted to see for OT services. Pt with BPs 91/45 and 83/45 with a temp of 99.7. Pt states she is feeling poorly. Will hold at this time.
--- NOTE | 2023-03-12 14:55 | CM.DANOTE ---
Patient is an 82 yo female who was admitted on 03/11/23 for BP issues. Pt has [employer] for insurance and her PCP is Dr. Ruth Tao. EMR was reviewed. Per MD, pt with acute hyponatremia, sepsis with possible pneumonia and UTI. PT/OT ordered and pending as currently on hold for orthostatics. SW met bedside with pt, her adult son/DPOA and his and explained role and they confirm that pt lives alone in [place] and son and Dtr mason live in [place]. Pt is very active and independent at baseline and does not use DME for ambulation and still drives. Pt denies any hx of HH or SNF and was about to go on a trip to [place] but now has had to cancel her trip and needs some documentation from MD. Son and Dtr mason confirm that pt is definitely below her baseline as she manages her own ADLs and housekeeping and shopping. Preference is home at d/c with family support and would be agreeable to HH if needed. Plan: SW to follow closely for PT/OT eval and recommendations to confirm safe for home with local family support and r/o HH or any other needs. SARITA Arevalo Discharge Planning/Care Management CM Discharge Assessment Start: 03/12/23 14:52 Freq: Status: Active Protocol: Document 03/12/23 14:52 BF (Rec: 03/12/23 14:55 BF [id number]) Discharge Planning Assessment Assigned Customer Service Technician SARITA Gonzalez DPOA/Assigned Designee Name wanda Lane Contact Information [phone] Advance Directives? Yes Advance Directives on File No History Provided By Patient,Family Member,Medical Record Has Patient been admitted in last 30 No days? Prior Living Arrangements Apartment/Condo Household Members none Type of transporation used prior to Drives own vehicle admit Independent with ADL's Yes Is patient alert and oriented? Yes Caregiver for Another No Comment PT/OT pending Barriers to Discharge No Discharge Plan Home Transportation Arrangement Son bedside and can transport at d/c Referrals Initiated None needed Additional Comment Pending PT/OT eval and recommendations Whiteboard Updated in Patient Room with Yes name and ext. # of Customer Service Technician Review Status In Process Please Provide Date Initial DC 03/12/23 Assessment Was Performed Next Review Type Continued Stay Review
[2023-03-12 15:24] LABS: BUN Creatinine Ratio 18.7 (6-22); Blood Urea Nitrogen 17 mg/dL (7-17); Calcium 7.3 mg/dL (8.4-10.2); Carbon Dioxide 21 mmol/L (22-32); Chloride 98 mmol/L (98-107); Estimated Glomerular Filt Rate > 60 mL/min (>60); Glucose 94 mg/dL (80-110); HEMOLYSIS < 15 (0-50); Potassium 3.6 mmol/L (3.4-5.1); Sodium 125 mmol/L (137-145)
--- NOTE | 2023-03-12 16:44 | DIET.CONS ---
Dietary Consultation Note Admission Date: 03/11/2023 15:40 Assessment: 82y F admitted for weakness and hypotension referred to nutrition for malnutrition assessment (MNA 10). At baseline, pt lives independently and is independent with ADLs. She recently went on minocycline for dermatology issue but started feeling poorly with little to no PO intake x5d. Pt admitted with sodium 125 that dropped to 122 after IVF. Per hospitalist H&P, pt pale and fatigued, has progressive weakness and poor po intake and has eaten or drank very little in 5 days. Pt at high risk for continued malnutrition with baseline weight low for age. Ht: 160.02 cm Wt: 51.528 kg (-4% in 1w, severe) BMI: 20.1 UBW: 53.6kg Last BM: 03/12/23 (03/12/23 11:31) MNA: 10 Emmanuel Score: 19 Diet: 03/11/23 Dinner General (Regular) Diet Diet Modifications: 03/12/23 Lunch Fluid Restriction Diet Diet Modifications: Total fluid amount: 1,000 Amount allotted to patient trays: 1,000 Free water included in total: Yes Fluid in addition to trays: [id number] amount: 700 [id number] amount: 300 Nutrition Percent Meal Consumed 50% 03/11/23 18:38 Percent Meal Consumed 50% 03/11/23 18:00 Labs: RBC 3.47 X10^6/uL (4.0-5.2) L 03/12/23 04:50 Hgb 10.9 g/dL (12.0-16.0) L 03/12/23 04:50 Hct 30.9 % (36-46) L 03/12/23 04:50 Creatinine 0.91 mg/dL (0.52-1.04) 03/12/23 15:01 Lactate 1.6 mmol/L (0.7-2.1) 03/11/23 13:38 Nutrition Diagnosis: Severe Acute Malnutrition r/t medication reaction aeb 4% unintentional weight loss in 5d (severe), BMI 20.1 (severe for age), pt with 5d PO intake meeting <10% EER after taking minocycline with associated weakness, sodium 122. Interventions: 1. Pt would benefit from weight repletion to 59kg (130#) to maintain BMI 23 secondary to advanced age. 2. Recc ONS daily in addition to meals to support LBM and weight gain. EER: 1600-1800kcals/d (30-35kcal/kg per PCM), 67-70g PRO Monitoring/Evaluations: POs, ONS tolerance Electronically Signed by: Pavithra Celeste 03/12/23 16:44 Clinical Dietitian [address] [address]
[2023-03-12 21:00] VITALS: BP 104/61; PULSE 77; RESP 19; TEMP 36.3; O2SAT 93
[2023-03-13] VITALS (7 sets, daily range): BP systolic 100–130; BP diastolic 58–67; PULSE 84–102; RESP 16–22; TEMP 36.3–37.6; O2SAT 92–96
[2023-03-13 05:23] LABS: Add Manual Diff / Slide Review NO; Basophils Absolute Auto 100 /uL (0-100); Basophils Percent Auto 0.6 % (0-2); Eosinophils Absolute Auto 500 /uL (0-450); Eosinophils Percent Auto 4.3 % (2-4); Hematocrit 33.2 % (36-46); Hemoglobin 11.7 g/dL (12.0-16.0); Lymphocytes Absolute Auto 1000 /uL (1100-4500); Lymphocytes Percent Auto 8.5 % (25-40); Mean Corpuscular HGB Conc 35.1 % (30-36); Mean Corpuscular Hemoglobin 31.3 PG (26-34); Mean Corpuscular Volume 89.1 fL (80-100); Monocytes Absolute Auto 700 /uL (0-900); Monocytes Percent Auto 5.9 % (3-14); Neutrophils Absolute Auto 9200 /uL (1500-7000); Neutrophils Percent Auto 80.7 % (50-75); Platelet Count 165 X10^3/uL (150-400); Red Blood Cell Count 3.72 X10^6/uL (4.0-5.2); Red Cell Distribution Width 14.8 % (11.6-14.8); White Blood Cell Count 11.4 X10^3/uL (4.5-11.0)
[2023-03-13 05:44] LABS: Blood Urea Nitrogen 15 mg/dL (7-17); Calcium 7.5 mg/dL (8.4-10.2); Carbon Dioxide 18 mmol/L (22-32); Chloride 99 mmol/L (98-107); Estimated Glomerular Filt Rate > 60 mL/min (>60); Glucose 73 mg/dL (80-110); HEMOLYSIS < 15 (0-50); Potassium 3.5 mmol/L (3.4-5.1); Sodium 125 mmol/L (137-145)
--- NOTE | 2023-03-13 05:59 | PC.NURSE ---
BS this am was 73 from am labs, pt is awake, given orange juice. pt also now on 2 L NC due to sating 90's on RA.
--- NOTE | 2023-03-13 08:11 | PM.PN.1 ---
Subjective Subjective Interval history: Patient now on 2L O2. CXR shows pulm edema. Na improved to 126. Exam Vital Signs (past 8 hours): - 03/13/23 05:29 03/13/23 06:00 03/13/23 08:00 Temperature 99.0 F 97.8 F Pulse Rate 87 102 H Respiratory Rate 22 16 Blood Pressure 106/67 112/61 Pulse Oximetry 93 93 95 Oxygen Flow Rate 2 2 Oxygen Delivery Method Room Air Oxygen Flow Rate 2 Narrative Exam Narrative: GEN: no acute distress, appears ill, fatigued HEENT: moist mucous membranes, PERRL NECK: trachea midline, no JVD CV: regular rate and rhythm, no murmurs PULM: clear bilaterally ABD: soft, nontender, nondistended, no organomegaly EXT: warm and well perfused with no edema NEURO: awake, alert, oriented, no focal deficits Objective Labs 03/13/23 05:00 03/13/23 14:25 Labs: Laboratory Results - last 24 hr 03/12/23 03/13/23 03/13/23 15:01 05:00 05:00 WBC 11.4 H D RBC 3.72 L Hgb 11.7 L Hct 33.2 L MCV 89.1 MCH 31.3 MCHC 35.1 RDW 14.8 Plt Count 165 Neut % (Auto) 80.7 H Lymph % (Auto) 8.5 L [place] % (Auto) 5.9 Eos % (Auto) 4.3 H Baso % (Auto) 0.6 Neut # (Auto) 9200 H Lymph # (Auto) 1000 L [place] # (Auto) 700 Eos # (Auto) 500 H Baso # (Auto) 100 Sodium 125 L 125 L Potassium 3.6 3.5 Chloride 98 99 Carbon Dioxide 21 L 18 L BUN 17 15 Creatinine 0.91 0.88 Estimated GFR > 60 > 60 BUN/Creatinine Ratio 18.7 17.0 Glucose 94 73 L Calcium 7.3 L 7.5 L PFSH Social History household members: none Smoking Status: Never smoker alcohol intake: current Assessment & Plan Assessment & Plan narrative: # 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 -Na 125 on admission, previously 135 in 2020 -despite urine sodium low at 14 and hypovolemia suspected, Na dropped to 122 overnight with fluids -start 1L daily fluid restriction, 1g salt tabs BID -hold IVF's -Na improved to 126 -daily BMP's # hypoxic resp failure 2/2 possible PNA, pulm edema -patient notes mild cough, urinary frequency -CXR with minimal left basilar infiltrate vs atelectasis -procal elevated at 0.8 suggesting active infection -continue rocephin and azithro -lasix 40mg IV daily # UTI ruled out -UA with pyuria but squam's present -urine culture with no growth # fatigue and weakness -likely due to PNA, UTI and hyponatremia -PT/OT evals rec SNF # 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 Code status is DNR. DVT prophylaxis with heparin subQ. Proxy is wanda Lane. Dispo: Home with HH vs SNF in 1-2 days pending improvement in sodium and O2 requirements.
[2023-03-13] MEDS: AZITHROMYCIN 250 MG TABLET 500 MG PO (08:37)
[2023-03-13] MEDS: SODIUM CHLORIDE 1,000 MG TABLET 1000 MG PO ×3 (08:37→17:24)
[2023-03-13] MEDS: HEPARIN 5,000 UNIT/ML VIAL 5000 UNIT SUBCUT ×2 (08:39→21:08)
[2023-03-13] MEDS: cefTRIAXone 1,000 MG in SODIUM CHLORIDE 0.9% 100 ML 200 MG IV (08:40)
--- NOTE | 2023-03-13 09:04 | PC.NURSE ---
Addendum entered by Letitia Barrera R.N. 03/13/23 11:38: Patients pulse is 98. Earlier when up pulse up to 120s. Patient is asymptomatic and is working with physical therapy. Will give patient and IS and teach her how to use this. Visiting with family. Addendum entered by Letitia Barrera R.N. 03/13/23 11:10: Patient worked with physical therapy. She is a little bit unsteady on her feet, but did well getting to the restroom. She is now sitting up in the chair and visiting with her son and his . Will check her sats and see if patient can be decreased on her oxygen, will also try and see how she does on room air. Original Note: Patient put on oxygen last evening, as her sats were in the high 80s-90s! She is breathing well and lung sounds are clear. O sob noted. She seems to be feeling a bit better today and ate better at breakfast. Up to the commode with one person assist and patient voided and had a small bowel movement. IV anbtibiotic infusing.
--- NOTE | 2023-03-13 11:09 | OT.IP.EVAL ---
Current Diagnoses Hypo-osmolality and hyponatremia (03/11/23) Occupational Therapy Inpatient Evaluation/Re-Eval M1 PT/OT-IP Prior Functional Status Start: 03/13/23 11:45 Freq: NEEDED Status: Active Protocol: Document 03/13/23 10:40 [facility] (Rec: 03/13/23 12:10 [facility] [id number]) Medical Review Prior Functional Status Communication Independent Mobility and Gait Independent and did not use a device. Activities of Daily Living and IADL's Completely independent and still drives. Prior Functional Level (Other details) Pt's son lives in [facility]. Social History Household Members none Living Arrangements Apartment/Condo Number of Stairs To Enter/Railing? no steps to enter Home Environment Standard Height Toilet,Walk in Shower M2 OT-IP Current Condition Start: 03/13/23 11:45 Freq: Status: Active Protocol: Document 03/13/23 10:40 [facility] (Rec: 03/13/23 12:10 [facility] [id number]) Occupational Therapy Current Condition Current Condition Evaluation Date 03/13/23 Treatment Diagnosis Acute hyponatremia Diagnosis Onset Date 03/11/23 M3 OT- IP Subjective and Pain Start: 03/13/23 11:45 Freq: Status: Active Protocol: Document 03/13/23 10:40 [facility] (Rec: 03/13/23 12:10 [facility] [id number]) OT- Subjective Occupational Therapy Visit Type Type Initial Evaluation Visit Start Time 10:40 Visit Stop Time 11:09 Total Visit Minutes 29 Occupational Therapy Visit Comments Patient Comments Pt initially not wanting to get up and then agreed to get up to do grooming and get up to the recliner fro lunch. Patient/Caregiver Goals To go home, but willing to go to rehab if needed. OT Pain Assessment Pain When Pain Assessed At Rest Pain Present Pain Present Denied Pain M4 OT- IP ADL's Start: 03/13/23 11:45 Freq: Status: Active Protocol: Document 03/13/23 10:40 [facility] (Rec: 03/13/23 12:10 [facility] [id number]) OT [id number] Comments OT Self-Feeding Comments Not at meal time. OT ADL-Grooming General Evaluation Grooming Ability Independent Areas Needing Assistance Retrieving/Set-up of Grooming Items Comments OT Grooming Comments Able to do while standing at the sink with FWW. OT ADL-Oral Care General Eval Oral Care Ability Independent Areas of Assistance Retrieving/Set-Up of Items Comments Oral Care Comments Able to do while standing with FWW in front of the sink. OT ADL-Dressing General Eval Lower Body Dressing Ability Standby Assistance Areas Needing Assistance Socks Comments OT Dressing Comments Pt able to sharron her socks while seated. OT ADL-Toileting Comments OT Toileting Comments Pt not having to at this time but will benefit from assist due to decreased dynamic balance and activity tolerance . OT ADL-Bathing Comments OT Bathing Comments Not performed, pt would benefit from getting shower chair and hand held shower spray at home to use. M5 OT- IP IADL's Start: 03/13/23 11:45 Freq: Status: Active Protocol: Document 03/13/23 10:40 [facility] (Rec: 03/13/23 12:10 [facility] [id number]) OT-Instrumental Activities of Daily Living Deficits IADL Deficits Identified Deficits Home Safety Awareness Awareness of Need for Assistance at Home Good Awareness Ability to Problem Solve Emergency Able to Problem Solve Situations Home Safety Comments Pt able to accurately answer all home safety questions 100% . Medication Management Medication Management Comments prior pt was completely independent Money Management Money Management Comments prior pt completely independent Meal Preparation Meal Preparation Comments Pt will benefit from assist due to decreased balance and activity tolerance at this time. Transitions Manager Rn Transitions Manager Rn Comments Pt will benefit from assist due to decreased balance and activity tolerance at this time. M6 OT- IP Functional Cognition Start: 03/13/23 11:45 Freq: Status: Active Protocol: Document 03/13/23 10:40 [facility] (Rec: 03/13/23 12:10 [facility] [id number]) Cognitive Factors Limiting Selfcare Function Cognitive Ability Level of Alertness Alert Patient Orientation Name,Place,Situation Attention Span Ability Capable of Focused Attention, Capable of Sustained Attention Ability to Follow Commands Able to Follow One Step Commands Cognitive Comments Cognitive Assessment Comments Pt needing cues for FWW safety as prior pt did not use a device for mobility needs. Pt able to follow commands for ADl and mobility needs. To continue to assess higher cognitive needs- to try [employer] [place] [employer] next time. OT- Vision and Hearing OT- Hearing Assessment OT- Hearing Assessment WFL OT- Vision Assessment Visual Acuity Glasses For Reading Visual Attentiveness WFL Occular Pursuits WFL Visual Convergence WFL Visual Bey WFL Diplopia Absent M7 OT- IP Mobility and Balance Start: 03/13/23 11:45 Freq: Status: Active Protocol: Document 03/13/23 10:40 [facility] (Rec: 03/13/23 12:10 [facility] [id number]) OT- Bed Mobility Assessment Supine to Sit Supine to Sit Assist Standby Assistance Sit to Supine Sit to Supine Assist Standby Assistance Scooting Scooting to Edge of Bed Standby Assistance OT-Transfer Assessment Sit to and From Stand Sit to and from Stand Contact Guard Assistance Transfers Transfer Ability Minimal Assistance Technique Transfer Destination Bed,Chair Transfer Technique Stand Step Pivot Devices Transfer Assistive Devices Gait Belt,Front Wheeled Walker Comments Mobility Comments CGA to stand to FWW and to walk to and from the sink. Pt needing assist for O2 tubing management needs. OT- Balance Assessment Sitting Balance and Reactions Static Sitting Balance Ability Normal Dynamic Sitting Balance Ability Good Standing Balance and Reactions Static Standing Balance Ability Fair Dynamic Standing Balance Ability Fair M8 OT- IP Objective Assessments Start: 03/13/23 11:45 Freq: Status: Active Protocol: Document 03/13/23 10:40 [facility] (Rec: 03/13/23 12:10 [facility] [id number]) OT Gross Range of Motion Upper Extremity Range of Motion Assessment Within Functional Limits OT Strength Upper Extremity Strength Assessment Within Functional Limits Comments Strength Comments WFl for age and lifestyle. OT- Coordination Assessment Upper Extremity Finger to Nose Test Within Functional Limits M9 OT- IP Assessment and Plan Start: 03/13/23 11:45 Freq: Status: Active Protocol: Document 03/13/23 10:40 [facility] (Rec: 03/13/23 12:10 [facility] [id number]) OT Summary Assessment and Plan Potential Rehabilitation Potential Excellent Analytic Complexity at Evaluation Moderate Summary OT Impairments Balance,Functional Mobility, Dressing,Toileting,Bathing, Toilet Transfers,Shower Transfers,Activity Tolerance Progress Towards Goals Progressing Toward Goals Assessment Summary Pt MOD complexity and main barriers are pt on 2.5L on O2 and reading 92-95%, decreased activity tolerance and decreased dynamic balance as has loss of balance while standing at the sink while turning to talk to the therapist. Pt needing use of FWW at this time and is far from her baseline of completely independent with all needs and driving. Pt may benefit from short skilled rehab versus home with 24/7 available assist but not 1:1 and home health. Goals Grooming Goal Independent Dressing Goal Independent Toileting Goal Independent Bathing Goal Independent Toilet Transfer Goal Independent Shower Transfer Goal Independent Days to Meet Goals 10 Frequency of Treatment Frequency Of Treatment Once a Day Treatment Plan OT Treatment Plan ADL Training,Functional Mobility,Patient/Family Education,Discharge Planning Other Treatment Recommendations and Next Pt to be able to do all Treatment Focus grooming needs at the sink with no O2, fww , and good safety. Discharge Recommendations OT Discharge Recommendations Home with 24/7 Assist Available,Home Health,SNF Rehab,Home vs SNF Home Equipment Needs shower chair, fww Transportation Needs at Discharge Private Vehicle,Wheelchair/ Cabulance
--- NOTE | 2023-03-13 11:16 | PT.IIE ---
Current Diagnoses Hypo-osmolality and hyponatremia (03/11/23) Physical Therapy Inpatient Evaluation/Re-Eval M1 PT/OT-IP Prior Functional Status Start: 03/12/23 08:14 Freq: NEEDED Status: Active Protocol: Document 03/13/23 11:16 [facility] (Rec: 03/13/23 13:20 [facility] [id number]) Medical Review Prior Functional Status Medical History Reviewed Yes Communication able to make needs known; [employer] Mobility and Gait pt stated that she is independent with all mobilities and ambulation without AD; per EMR, pt still able to drive Social History Household Members none Living Arrangements Apartment/Condo Number of Floors (Floors) One Floor Number of Stairs To Enter/Railing? no steps to enter Home Environment Standard Height Toilet,Walk in Shower Additional Social History Comment pt's son lives in [facility] but will be able to assist pt if needed but stated only temporarily M1 PT/OT-IP Prior Functional Status Start: 03/13/23 11:45 Freq: NEEDED Status: Active Protocol: Document 03/13/23 10:40 [facility] (Rec: 03/13/23 12:10 [facility] [id number]) Medical Review Prior Functional Status Communication Independent Mobility and Gait Independent and did not use a device. Activities of Daily Living and IADL's Completely independent and still drives. Prior Functional Level (Other details) Pt's son lives in [facility]. Social History Household Members none Living Arrangements Apartment/Condo Number of Stairs To Enter/Railing? no steps to enter Home Environment Standard Height Toilet,Walk in Shower M2 PT-IP Current Condition Start: 03/12/23 08:14 Freq: NEEDED Status: Active Protocol: Document 03/13/23 11:16 [facility] (Rec: 03/13/23 13:20 [facility] [id number]) Physical Therapy Current Condition Current Condition Evaluation Date 03/13/23 Treatment Diagnosis sepsis; hyponatremia; difficulty in walking Onset Date 03/11/23 M3 PT-IP Subjective Start: 03/12/23 08:14 Freq: NEEDED Status: Active Protocol: Document 03/13/23 11:16 [facility] (Rec: 03/13/23 13:20 [facility] [email or web address]) Subjective Physical Therapy Visit Type Type Initial Evaluation Visit Start Time 11:16 Visit Stop Time 11:47 Total Visit Minutes 31 Notes pt on hold for PT yesterday due to low BP and fever. cleared today for PT eval per hospitalist Number of [employer] Visits 0 Physical Therapy Visit Comments Patient Comments agreeable to do PT M4 PT-IP Mobility and Gait Start: 03/12/23 08:14 Freq: NEEDED Status: Active Protocol: Document 03/13/23 11:16 [facility] (Rec: 03/13/23 13:20 [facility] [id number]) PT-Bed Mobility Assessment Supine to Sit Supine to Sit Standby Assistance Sit to Supine Sit to Supine Standby Assistance PT-Transfer Assessment Sit to and From Stand Sit to and from Stand Contact Guard Assistance,1 Person Assistance,Use of Upper Extremities Equipment Transfer Assistive Device Gait Belt,Front Wheeled Walker Orthotic/Prosthetic Devices or Brace: No Transfers Transfer Destination Bed,Chair Transfer Technique ambulated Transfer Ability Level of Assist Contact Guard Assistance, Minimal Assistance,1 Person Assistance,Use of Upper Extremities Comments Mobility Comments pt sitting on chair with son and DIL in room. pt agree to do PT. c/o feeling tired. BP in sittin/71 , WA 124 and O2 at 2L/min: 95%. informed nurse regarding WA and stated that pulse ox might not be accurate. checked pt' s pulse manually and readin and pulse ox readin. completed sit to stand CGA and ambulated to the bed ~ 12 ft using FWW CGA. completed sit<>supine SBA. (+) SOB. O2 sat checked: 95-96% WA: varies: 70s to 100s. pt ambulated back to the chair. sit to stand from EOB CGA and ambulate without AD min A and pt tends to hold on to bed for support. presents with unsteady guarded gait. pt sat on chair. BP checked: 90/63 O2 sat 97% WA: varies from 50s to 80s. nurse informed. nurse stated that pt will be having a chest xray and needs to be back in bed. nurse lowered pt's O2 to 1L/min. completed sit to stand from chair CGA and step transfer to bed without AD CGA. sit to supine SBA. positioned pt in bed. call light and table placed within reach. O2 sat at end of tx session: 96% WA: 108 Gait Assessment Gait Gait Assistance Required: Contact Guard Assist,Minimum Assistance Distance (Feet) 12 Able to Maintain Weight Bearing Status Yes During Gait Assistive Devices Assistive Device None,Gait Belt,Front Wheeled Walker Orthotic/Prosthetic Devices or Brace: No Gait Deviations General Gait Pattern Decreased Stride Length, Decreased Feet Clearance Factors Limiting Gait Function Factors Limiting Gait Function Decreased Activity Tolerance, Decreased Strength,Poor Balance,Poor Safety Awareness, Respiratory Distress PT-Balance Assessment Sitting Balance and Reactions Static Sitting Balance Ability Normal Dynamic Sitting Balance Ability Good Standing Balance and Reactions Static Standing Balance Ability Fair Dynamic Standing Balance Ability Poor Device Used without AD M5 PT-IP Objective Assessments Start: 03/12/23 08:14 Freq: NEEDED Status: Active Protocol: Document 03/13/23 11:16 [facility] (Rec: 03/13/23 13:20 [facility] [id number]) Orientation Orientation/Cognition Level of Alertness Alert Orientation Name,Age,Place,Situation Language Function Ability Hard of Hearing Safety Awareness Decreased Safety Awareness Memory Description No Deficits Noted Gross Range of Motion Lower Extremity ROM Assessment Within Functional Limits Strength Lower Extremity Strength Hip 4-/5 Knee 4-/5 Ankle 4-/5 Muscle Tone Muscle Tone WNL Yes M6 PT-IP Treatment Start: 03/12/23 08:14 Freq: NEEDED Status: Active Protocol: Document 03/13/23 11:16 [facility] (Rec: 03/13/23 13:20 [facility] [id number]) Physical Therapy Treatment Education Education Provided Safety M7 PT-IP Assessment and Plan Start: 03/12/23 08:14 Freq: NEEDED Status: Active Protocol: Document 03/13/23 11:16 [facility] (Rec: 03/13/23 13:20 [facility] [email or web address]) PT Summary Assessment and Plan Potential Rehabilitation Potential Good Status of Condition at Evaluation Evolving Summary Impairments Pain,ROM,Strength,Balance,Tone ,Bed Mobility,Transfers,Gait, Activity Tolerance Assessment Summary pt admitted to the hospital for sepsis and hyponatremia. pt requiring CGA with ambulation using FWW but requiring min A without AD. pt has decrease activity tolerance and demonstrated difficulty completing all tasks needing increase rest breaks in between activites. pt also presents with SOB but O2 sat stable: 95-97% with use of O2 but has varying WA readings from 104 to 124 resting and 50s to 100s with activities. nurse is aware of WA. pt will require SNF rehab to improve overall strength and activity tolerance and increase functional independence. Goals Bed Mobility Goal Independent Transfer Goal Independent,Front Wheeled Walker Gait Goal Independent,Front Wheel Walker Gait Distance 250 Other Goals improve transfers and ambulation without AD 300 ft mod I Days to Meet Goals 10 Frequency of Treatment Frequency Of Treatment Once a Day Treatment Plan Physical Therapy Treatment Plan Bed Mobility Training,Transfer Training,Gait Training, Therapeutic Exercise,Balance Retraining,Discharge Planning, Hot or Cold Pack,Neuromuscular Re-ed,Coordination Retraining Precautions Other Precautions WA, O2 sat Recommendations To Nursing Amount of Assist Needed 1 Person Assist Discharge Recommendations PT Discharge Recommendations SNF Rehab Equipment Needed for Home Before FWW: if pt goes home and not Discharge safe without AD Transportation Needs at Discharge Private Vehicle,Wheelchair/ Cabulance
--- NOTE | 2023-03-13 11:41 | DI.RAD.S_ITS ---
PROCEDURE: XR CHEST 1V INDICATIONS: hypoxia TECHNIQUE: One view of the chest was acquired. COMPARISON: [facility], CR, XR CHEST 2V, 03/02/2022, 10:53. [facility], CR, XR CHEST 1V, 03/11/2023, 13:42. FINDINGS: Surgical changes and devices: None. Lungs and pleura: Trace bilateral pleural effusions. Central pulmonary vascular congestion with cephalization of pulmonary vasculature. Mediastinum: Mediastinal contours appear normal. Heart size is normal. Bones and chest wall: No suspicious bony lesions. Overlying soft tissues appear unremarkable. IMPRESSION: Central pulmonary vascular congestion with trace bilateral pleural effusions concerning for CHF/fluid overload. Dictated by: Umu Gray MD, PhD on 03/13/2023 at 13:04 Approved by: Umu Gray MD, PhD on 03/13/2023 at 13:05
[2023-03-13] MEDS: FUROSEMIDE 40 MG/4 ML VIAL IV (14:09)
[2023-03-13 14:50] LABS: BUN Creatinine Ratio 16.9 (6-22); Blood Urea Nitrogen 15 mg/dL (7-17); Calcium 7.7 mg/dL (8.4-10.2); Carbon Dioxide 22 mmol/L (22-32); Chloride 97 mmol/L (98-107); Estimated Glomerular Filt Rate > 60 mL/min (>60); Glucose 125 mg/dL (80-110); HEMOLYSIS < 15 (0-50); Potassium 3.8 mmol/L (3.4-5.1); Sodium 126 mmol/L (137-145)
[2023-03-14 02:12] VITALS: BP 113/73; PULSE 99; RESP 18; TEMP 36.6; O2SAT 97
[2023-03-14 05:46] VITALS: BP 106/58; PULSE 100; RESP 18; TEMP 37.2; O2SAT 91
[2023-03-14] MEDS: guaiFENesin ER 600 MG TAB PO (05:46)
[2023-03-14 06:19] LABS: Add Manual Diff / Slide Review NO; Basophils Absolute Auto 100 /uL (0-100); Basophils Percent Auto 0.6 % (0-2); Eosinophils Absolute Auto 600 /uL (0-450); Hematocrit 35.1 % (36-46); Hemoglobin 12.3 g/dL (12.0-16.0); Lymphocytes Absolute Auto 1100 /uL (1100-4500); Lymphocytes Percent Auto 7.4 % (25-40); Mean Corpuscular HGB Conc 35.1 % (30-36); Mean Corpuscular Volume 88.1 fL (80-100); Monocytes Absolute Auto 800 /uL (0-900); Monocytes Percent Auto 5.4 % (3-14); Neutrophils Absolute Auto 11700 /uL (1500-7000); Neutrophils Percent Auto 82.6 % (50-75); Platelet Count 189 X10^3/uL (150-400); Red Blood Cell Count 3.98 X10^6/uL (4.0-5.2); Red Cell Distribution Width 14.6 % (11.6-14.8); White Blood Cell Count 14.2 X10^3/uL (4.5-11.0)
[2023-03-14 06:20] LABS: Blood Urea Nitrogen 13 mg/dL (7-17); Calcium 7.8 mg/dL (8.4-10.2); Carbon Dioxide 24 mmol/L (22-32); Chloride 95 mmol/L (98-107); Estimated Glomerular Filt Rate > 60 mL/min (>60); Glucose 103 mg/dL (80-110); HEMOLYSIS < 15 (0-50); Potassium 3.1 mmol/L (3.4-5.1); Sodium 126 mmol/L (137-145)
[2023-03-14] MEDS: POTASSIUM CHLORIDE 20 MEQ TAB 40 MEQ PO (09:26)
[2023-03-14] MEDS: HEPARIN 5,000 UNIT/ML VIAL 5000 UNIT SUBCUT ×2 (09:26→20:58)
[2023-03-14] MEDS: cefTRIAXone 1,000 MG in SODIUM CHLORIDE 0.9% 100 ML 200 MG IV (09:26)
[2023-03-14] MEDS: SODIUM CHLORIDE 1,000 MG TABLET 1000 MG PO ×3 (09:26→17:23)
[2023-03-14] MEDS: FUROSEMIDE 40 MG/4 ML VIAL IV (09:26)
--- NOTE | 2023-03-14 09:45 | OT.IP.TRT ---
Current Diagnoses Hypo-osmolality and hyponatremia (03/11/23) Occupational Therapy Treatment Note M2 OT-IP Current Condition Start: 03/13/23 11:45 Freq: Status: Active Protocol: Document 03/13/23 10:40 [facility] (Rec: 03/13/23 12:10 [facility] [id number]) Occupational Therapy Current Condition Current Condition Evaluation Date 03/13/23 Treatment Diagnosis Acute hyponatremia Diagnosis Onset Date 03/11/23 M3 OT- IP Subjective and Pain Start: 03/13/23 11:45 Freq: Status: Active Protocol: Document 03/14/23 09:20 AMS (Rec: 03/14/23 09:44 AMS [id number]) OT- Subjective Occupational Therapy Visit Type Type Treatment Note Visit Start Time 08:45 Visit Stop Time 09:07 Total Visit Minutes 22 Notes Treatment ceased post- administration of SLUMS d/t patient request to rest and verbal indication of 'not feeling well' w/ intermittent positioning of R hand on stomach area and intermittent closure of eyes. Occupational Therapy Visit Comments Patient Comments 93% O2 on room air lying supine in bed w/ head of bed elevated and distal LE slightly elevated. 96% O2 on room air at conclusion of treatment lying supine in bed w/ head of bed elevated and distal LE slightly elevated. Pt agreeable to finishing SLUMS; not agreeable to get-up out of bed at this time. M4 OT- IP ADL's Start: 03/13/23 11:45 Freq: Status: Active Protocol: Document 03/13/23 10:40 [facility] (Rec: 03/13/23 12:10 [facility] [id number]) OT [id number] Comments OT Self-Feeding Comments Not at meal time. OT ADL-Grooming General Evaluation Grooming Ability Independent Areas Needing Assistance Retrieving/Set-up of Grooming Items Comments OT Grooming Comments Able to do while standing at the sink with FWW. OT ADL-Oral Care General Eval Oral Care Ability Independent Areas of Assistance Retrieving/Set-Up of Items Comments Oral Care Comments Able to do while atnding with FWW in front of the sink. OT ADL-Dressing General Eval Lower Body Dressing Ability Standby Assistance Areas Needing Assistance Socks Comments OT Dressing Comments Pt able to sharron her socks while seated. OT ADL-Toileting Comments OT Toileting Comments Pt not having to at this time but will benefit from assist due to decreased dynamic balance and activity tolerance . OT ADL-Bathing Comments OT Bathing Comments Not performed, pt would benefit from getting shower chair and hand held shower spray at home to use. M5 OT- IP IADL's Start: 03/13/23 11:45 Freq: Status: Active Protocol: Document 03/13/23 10:40 [facility] (Rec: 03/13/23 12:10 [facility] [id number]) OT-Instrumental Activities of Daily Living Deficits IADL Deficits Identified Deficits Home Safety Awareness Awareness of Need for Assistance at Home Good Awareness Ability to Problem Solve Emergency Able to Problem Solve Situations Home Safety Comments Pt able to acccurately answer all home safety questions 100% . Medication Management Medication Management Comments prior pt was completely independent Money Management Money Management Comments prior pt completely independent Meal Preparation Meal Preparation Comments Pt will benefit from assist due to decreased balance and activity tolerance at this time. Anesthesia Director Anesthesia Director Comments Pt will benefit from assist due to decreased balance and activity tolerance at this time. M6 OT- IP Functional Cognition Start: 03/13/23 11:45 Freq: Status: Active Protocol: Document 03/13/23 10:40 [facility] (Rec: 03/13/23 12:10 [facility] [id number]) Cognitive Factors Limiting Selfcare Function Cognitive Ability Level of Alertness Alert Patient Orientation Name,Place,Situation Attention Span Ability Capable of Focused Attention, Capable of Sustained Attention Ability to Follow Commands Able to Follow One Step Commands Cognitive Comments Cognitive Assessment Comments Pt needing cues for FWW safety as prior pt did not use a device for mobility needs. Pt able to follow commands for ADl and mobility needs. To continue to assess higher cognitive needs- to try SLUMS/ [place] Making Part B next time. OT- Vision and Hearing OT- Hearing Assessment OT- Hearing Assessment WFL OT- Vision Assessment Visual Acuity Glasses For Reading Visual Attentiveness WFL Occular Pursuits WFL Visual Convergence WFL Visual Bey WFL Diplopia Absent M7 OT- IP Mobility and Balance Start: 03/13/23 11:45 Freq: Status: Active Protocol: Document 03/13/23 10:40 [facility] (Rec: 03/13/23 12:10 [facility] [id number]) OT- Bed Mobility Assessment Supine to Sit Supine to Sit Assist Standby Assistance Sit to Supine Sit to Supine Assist Standby Assistance Scooting Scooting to Edge of Bed Standby Assistance OT-Transfer Assessment Sit to and From Stand Sit to and from Stand Contact Guard Assistance Transfers Transfer Ability Minimal Assistance Technique Transfer Destination Bed,Chair Transfer Technique Stand Step Pivot Devices Transfer Assistive Devices Gait Belt,Front Wheeled Walker Comments Mobility Comments CGA to stand to FWW and to walk to and from the sink. Pt needing assist for O2 tubing management needs. OT- Balance Assessment Sitting Balance and Reactions Static Sitting Balance Ability Normal Dynamic Sitting Balance Ability Good Standing Balance and Reactions Static Standing Balance Ability Fair Dynamic Standing Balance Ability Fair M8 OT- IP Objective Assessments Start: 03/13/23 11:45 Freq: Status: Active Protocol: Document 03/13/23 10:40 [facility] (Rec: 03/13/23 12:10 [facility] [id number]) OT Gross Range of Motion Upper Extremity Range of Motion Assessment Within Functional Limits OT Strength Upper Extremity Strength Assessment Within Functional Limits Comments Strength Comments WFl for age and lifestyle. OT- Coordination Assessment Upper Extremity Finger to Nose Test Within Functional Limits M9 OT- IP Assessment and Plan Start: 03/13/23 11:45 Freq: Status: Active Protocol: Document 03/14/23 09:20 AMS (Rec: 03/14/23 09:44 AMS [id number]) OT Summary Assessment and Plan Potential Rehabilitation Potential Excellent Summary Assessment Summary Administration of SLUMS; score = 15. Performance is likely an inaccurate representation of current cognitive status given fluctuating levels of alertness and intermittent c/o nausea and 'not feeling well' w/ noted placement of R hand onto stomach area. Change in performance notable from beginning of assessment --> end of assessment and fluctuating recall abilities ( ability to recall 5/5 items versus inability to repeat backwards 4-digit number and recall components of short story). Pt was on room air and O2 stats variable between 93 to 96%. Recommend further cognitive testing and continued outpatient OT treatment. Goals Grooming Goal Independent Dressing Goal Independent Toileting Goal Independent Bathing Goal Independent Toilet Transfer Goal Independent Shower Transfer Goal Independent Days to Meet Goals 10 Frequency of Treatment Frequency Of Treatment Once a Day Treatment Plan OT Treatment Plan ADL Training,Functional Mobility,Patient/Family Education,Discharge Planning Other Treatment Recommendations and Next [place] Making administration; Treatment Focus shower Discharge Recommendations OT Discharge Recommendations Home with 24/7 Assist Available,Home Health,SNF Rehab,Home vs SNF Home Equipment Needs shower chair, fww Transportation Needs at Discharge Private Vehicle,Wheelchair/ Cabulance
[2023-03-14 10:17] VITALS: BP 112/61; PULSE 103; RESP 18; TEMP 36.1; O2SAT 94
[2023-03-14 12:00] VITALS: BP 92/51; PULSE 99; RESP 17; TEMP 36.4; O2SAT 96
[2023-03-14] MEDS: predniSONE 5 MG TABLET 10 MG PO (14:26)
--- NOTE | 2023-03-14 15:52 | PT-IP ANOTE ---
Attempted to see patient this afternoon, nursing reported she had orthostatic hypotension earlier today and has been more tired. Patient reported not feeling up to working with PT, very tired today, started new medication and is hoping to feel better tomorrow to participate. Will attempt again tomorrow.
--- NOTE | 2023-03-14 15:58 | P.PN_ITS ---
Subjective Subjective Interval history: Became dizzy and light headed this morning, mildly nauseous. Sodium stable at 126, apparently stopped prednisone last week when she began to feel slightly worse. BP also a bit soft today. Exam Vital Signs (past 8 hours): - 03/14/23 10:17 03/14/23 12:00 Temperature 96.9 F L 97.6 F Pulse Rate 103 H 99 H Respiratory Rate 18 17 Blood Pressure 112/61 92/51 L Pulse Oximetry 94 96 Oxygen Flow Rate 0 0 Oxygen Delivery Method Nasal Cannula Oxygen Flow Rate 0 Narrative Exam Narrative: GEN: no acute distress, appears ill, fatigued HEENT: moist mucous membranes, PERRL NECK: trachea midline, no JVD CV: regular rate and rhythm, no murmurs PULM: clear bilaterally ABD: soft, nontender, nondistended, no organomegaly EXT: warm and well perfused with no edema NEURO: awake, alert, oriented, no focal deficits Objective Labs 03/14/23 05:20 03/14/23 05:20 Labs: Laboratory Results - last 24 hr 03/14/23 03/14/23 05:20 05:20 WBC 14.2 H RBC 3.98 L Hgb 12.3 Hct 35.1 L MCV 88.1 MCH 31.0 MCHC 35.1 RDW 14.6 Plt Count 189 Neut % (Auto) 82.6 H Lymph % (Auto) 7.4 L [place] % (Auto) 5.4 Eos % (Auto) 4.0 Baso % (Auto) 0.6 Neut # (Auto) 38121 H Lymph # (Auto) 1100 [place] # (Auto) 800 Eos # (Auto) 600 H Baso # (Auto) 100 Sodium 126 L Potassium 3.1 L Chloride 95 L Carbon Dioxide 24 BUN 13 Creatinine 0.81 Estimated GFR > 60 BUN/Creatinine Ratio 16.0 Glucose 103 Calcium 7.8 L PFSH Social History household members: none Smoking Status: Never smoker alcohol intake: current Assessment & Plan Assessment & Plan narrative: # 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 With continued Na of 126, hypotension, recently stopping prednisone may represent adrenal insufficiency. Have restarted prednisone 10 mg daily today to assess response. May need more prolonged taper. # hypoxic resp failure 2/2 possible PNA, pulm edema, now resolved. -patient notes mild cough, urinary frequency -CXR with minimal left basilar infiltrate vs atelectasis -procal elevated at 0.8 suggesting active infection -continue rocephin and azithro -lasix 40mg IV daily ordered but will stop given euvolemic today and soft BPs. # UTI ruled out -UA with pyuria but squam's present -urine culture with no growth # fatigue and weakness -likely due to PNA, UTI and hyponatremia -PT/OT evals rec SNF # 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 Code status is DNR. DVT prophylaxis with heparin subQ. Proxy is wanda Lnae. Dispo: Home with HH vs SNF in 1-2 days pending improvement in sodium and BP improvement.
[2023-03-14 20:00] VITALS: BP 93/58; PULSE 65; RESP 18; TEMP 36.1; O2SAT 94
[2023-03-15 02:00] VITALS: BP 115/77; PULSE 77; RESP 18; TEMP 36.6; O2SAT 98
[2023-03-15 06:05] LABS: Add Manual Diff / Slide Review NO; Basophils Absolute Auto 100 /uL (0-100); Basophils Percent Auto 0.8 % (0-2); Eosinophils Absolute Auto 200 /uL (0-450); Eosinophils Percent Auto 1.2 % (2-4); Hematocrit 35.1 % (36-46); Hemoglobin 12.2 g/dL (12.0-16.0); Lymphocytes Absolute Auto 1600 /uL (1100-4500); Lymphocytes Percent Auto 11.6 % (25-40); Mean Corpuscular HGB Conc 34.7 % (30-36); Mean Corpuscular Hemoglobin 30.8 PG (26-34); Mean Corpuscular Volume 88.9 fL (80-100); Monocytes Absolute Auto 800 /uL (0-900); Monocytes Percent Auto 5.9 % (3-14); Neutrophils Absolute Auto 11100 /uL (1500-7000); Neutrophils Percent Auto 80.5 % (50-75); Platelet Count 269 X10^3/uL (150-400); Red Blood Cell Count 3.95 X10^6/uL (4.0-5.2); Red Cell Distribution Width 14.8 % (11.6-14.8); White Blood Cell Count 13.8 X10^3/uL (4.5-11.0)
[2023-03-15 06:07] LABS: BUN Creatinine Ratio 16.5 (6-22); Blood Urea Nitrogen 21 mg/dL (7-17); Calcium 8.3 mg/dL (8.4-10.2); Carbon Dioxide 22 mmol/L (22-32); Chloride 98 mmol/L (98-107); Estimated Glomerular Filt Rate 42 mL/min (>60); Glucose 129 mg/dL (80-110); HEMOLYSIS < 15 (0-50); Potassium 3.9 mmol/L (3.4-5.1); Sodium 130 mmol/L (137-145)
--- NOTE | 2023-03-15 08:24 | CM.DPNOTE ---
DCP Note Reviewed DCP with patient and her family yesterday. PT recommending SNF upon discharge Reviewed MCR choice list via CM IPAD. Patient/family request referrals to 1. [facility] 2. [facility] in [place] 3. [facility] in [facility], corporate administrator, faxed these referrals yesterday Awaiting feedback from these facilities JW
[2023-03-15] MEDS: SODIUM CHLORIDE 1,000 MG TABLET 1000 MG PO ×3 (08:53→17:06)
[2023-03-15] MEDS: predniSONE 5 MG TABLET 10 MG PO (08:53)
[2023-03-15] MEDS: cefTRIAXone 1,000 MG in SODIUM CHLORIDE 0.9% 100 ML 200 MG IV (08:54)
[2023-03-15] MEDS: HEPARIN 5,000 UNIT/ML VIAL 5000 UNIT SUBCUT ×2 (08:54→20:44)
[2023-03-15 08:57] VITALS: PULSE 95; RESP 16; TEMP 36.7; O2SAT 95
--- NOTE | 2023-03-15 09:20 | OT.IPNOTE ---
Attempted to see Blanca; Blanca requested that OT try at a later time given that she was receiving IV treatment.
--- NOTE | 2023-03-15 10:22 | PT.IPTN ---
Current Diagnoses Hypo-osmolality and hyponatremia (03/11/23) Physical Therapy Treatment Note M2 PT-IP Current Condition Start: 03/12/23 08:14 Freq: NEEDED Status: Active Protocol: Document 03/13/23 11:16 [facility] (Rec: 03/13/23 13:20 AB [id number]) Physical Therapy Current Condition Current Condition Evaluation Date 03/13/23 Treatment Diagnosis sepsis; hyponatremia; difficulty in walking Onset Date 03/11/23 M3 PT-IP Subjective Start: 03/12/23 08:14 Freq: NEEDED Status: Active Protocol: Document 03/15/23 09:50 [facility] (Rec: 03/15/23 11:21 [facility] [id number]) Subjective Physical Therapy Visit Type Type Treatment Note Visit Start Time 09:50 Visit Stop Time 10:22 Total Visit Minutes 32 Notes Reports feeling much better today. Number of RN CLINICAL RESOURCE Visits 1 Physical Therapy Visit Comments Patient Comments agreeable to do PT M4 PT-IP Mobility and Gait Start: 03/12/23 08:14 Freq: NEEDED Status: Active Protocol: Document 03/15/23 09:50 [facility] (Rec: 03/15/23 11:21 [facility] [id number]) PT-Bed Mobility Assessment Supine to Sit Supine to Sit Standby Assistance Sit to Supine Sit to Supine Standby Assistance PT-Transfer Assessment Sit to and From Stand Sit to and from Stand Contact Guard Assistance,1 Person Assistance,Use of Upper Extremities Equipment Transfer Assistive Device None,Gait Belt,Front Wheeled Walker Orthotic/Prosthetic Devices or Brace: No Transfers Transfer Destination Bed,Chair Transfer Technique ambulated Transfer Ability Level of Assist Contact Guard Assistance,1 Person Assistance,Use of Upper Extremities Comments Mobility Comments Pt in bed upon arrival, BP taken in supine, sitting, and standing - stable throughout treatment from 105/high 50s to 116/high 60s. Pt denied any feelings of dizziness or nausea. SBA for bed mobility, CGA for sit<>Stand w/ FWW. Pt ambulated ~20 ft around room w / FWW and then sat in chair and performed LE exercises including ankle pumps, quad sets, glute sets, seated marching and demonstrated good tolerance. Pt reports she uses no AD at home and then ambulated additional 15 ft w/o AD and agreed she was more unsteady w/o FWW and still far from her baseline. Offers that her son will machine operator picker FWW from [employer]. She then transferred back to bed CGA, left in bed w/ all needs in reach. Gait Assessment Gait Gait Assistance Required: Contact Guard Assist,1 Person Assist Distance (Feet) 20 Assistive Devices Assistive Device None,Gait Belt,Front Wheeled Walker Orthotic/Prosthetic Devices or Brace: No Gait Deviations General Gait Pattern Decreased Stride Length, Decreased Feet Clearance Factors Limiting Gait Function Factors Limiting Gait Function Decreased Activity Tolerance, Decreased Strength,Poor Balance,Poor Safety Awareness, Respiratory Distress Comments Gait Comments See mobility section for details. PT-Balance Assessment Sitting Balance and Reactions Static Sitting Balance Ability Normal Dynamic Sitting Balance Ability Good Standing Balance and Reactions Static Standing Balance Ability Good Dynamic Standing Balance Ability Fair Device Used FWW M5 PT-IP Objective Assessments Start: 03/12/23 08:14 Freq: NEEDED Status: Active Protocol: Document 03/13/23 11:16 [facility] (Rec: 03/13/23 13:20 [facility] [id number]) Orientation Orientation/Cognition Level of Alertness Alert Orientation Name,Age,Place,Situation Language Function Ability Hard of Hearing Safety Awareness Decreased Safety Awareness Memory Description No Deficits Noted Gross Range of Motion Lower Extremity ROM Assessment Within Functional Limits Strength Lower Extremity Strength Hip 4-/5 Knee 4-/5 Ankle 4-/5 Muscle Tone Muscle Tone WNL Yes M6 PT-IP Treatment Start: 03/12/23 08:14 Freq: NEEDED Status: Active Protocol: Document 03/15/23 09:50 [facility] (Rec: 03/15/23 11:21 [facility] [id number]) Physical Therapy Treatment Exercises Exercises Ankle Pumps,Gluteal Sets,Quad Sets Education Education Provided Safety Other Treatments Other Treatment Performed Seated marching M7 PT-IP Assessment and Plan Start: 03/12/23 08:14 Freq: NEEDED Status: Active Protocol: Document 03/15/23 09:50 [facility] (Rec: 03/15/23 11:21 [facility] [id number]) PT Summary Assessment and Plan Potential Rehabilitation Potential Good Summary Impairments Pain,ROM,Strength,Balance,Tone ,Bed Mobility,Transfers,Gait, Activity Tolerance Progress Towards Goals Progressing Toward Goals Assessment Summary Pt is showing progress, but remains far from her baseline mobility. She requires FWW to ambulate steadily and is limited to short distances due to weakness. At her baseline she enjoys hiking and uses no AD at home. Trialed short distance ambulation w/o AD and pt was much more unsteady w/ uncertain steps. BP stable this visit. D/t pt living alone and being far from baseline, at this time she would benefit from SNF to improve strength and mobility independence. Will continue to assess progress. Goals Bed Mobility Goal Independent Transfer Goal Independent,Front Wheeled Walker Gait Goal Independent,Front Wheel Walker Gait Distance 250 Other Goals improve transfers and ambulation without AD 300 ft mod I Days to Meet Goals 10 Frequency of Treatment Frequency Of Treatment Once a Day Treatment Plan Physical Therapy Treatment Plan Bed Mobility Training,Transfer Training,Gait Training, Therapeutic Exercise,Balance Retraining,Discharge Planning, Hot or Cold Pack,Neuromuscular Re-ed,Coordination Retraining Other Recommendations and Next Treatment Increase amb distance Focus Precautions Other Precautions [place], O2 sat Recommendations To Nursing Amount of Assist Needed 1 Person Assist Discharge Recommendations PT Discharge Recommendations SNF Rehab Equipment Needed for Home Before FWW: if pt goes home and not Discharge safe without AD Transportation Needs at Discharge Private Vehicle,Wheelchair/ Cabulance
--- NOTE | 2023-03-15 12:59 | OT.IP.TRT ---
Current Diagnoses Hypo-osmolality and hyponatremia (03/11/23) Occupational Therapy Treatment Note M2 OT-IP Current Condition Start: 03/13/23 11:45 Freq: Status: Active Protocol: Document 03/13/23 10:40 [facility] (Rec: 03/13/23 12:10 [facility] [id number]) Occupational Therapy Current Condition Current Condition Evaluation Date 03/13/23 Treatment Diagnosis Acute hyponatremia Diagnosis Onset Date 03/11/23 M3 OT- IP Subjective and Pain Start: 03/13/23 11:45 Freq: Status: Active Protocol: Document 03/15/23 12:59 [facility] (Rec: 03/15/23 14:19 [facility] [id number]) OT- Subjective Occupational Therapy Visit Type Type Treatment Note Visit Start Time 12:59 Visit Stop Time 13:54 Total Visit Minutes 55 Occupational Therapy Visit Comments Patient Comments Pt wanting to shower. Patient/Caregiver Goals To go home. OT Pain Assessment Pain When Pain Assessed At Rest Pain Present Pain Present Denied Pain M4 OT- IP ADL's Start: 03/13/23 11:45 Freq: Status: Active Protocol: Document 03/15/23 12:59 [facility] (Rec: 03/15/23 14:19 [facility] [id number]) OT [id number] Comments OT Self-Feeding Comments Not at meal time. OT ADL-Grooming General Evaluation Grooming Ability Independent Areas Needing Assistance Retrieving/Set-up of Grooming Items Comments OT Grooming Comments Able to do but needing to hold to the sink at times for balance. OT ADL-Oral Care General Eval Oral Care Ability Independent Areas of Assistance Retrieving/Set-Up of Items Comments Oral Care Comments Able to do while standing with FWW in front of the sink. OT ADL-Dressing General Eval Lower Body Dressing Ability Independent,Standby Assistance Comments OT Dressing Comments Pt able to do all dressing needs with close SBA for balance. OT ADL-Bathing Bathing Type Bathing Type Shower General Evaluation Bathing Ability Contact Guard Assistance Comments OT Bathing Comments Occasional CGA for balance when pt standing to do pericare needs. VC for completeness to dry herself. Pt able to sit for most of the shower. Pt's family looking to get a shower chair for her to use. M5 OT- IP IADL's Start: 03/13/23 11:45 Freq: Status: Active Protocol: Document 03/13/23 10:40 [facility] (Rec: 03/13/23 12:10 [facility] [id number]) OT-Instrumental Activities of Daily Living Deficits IADL Deficits Identified Deficits Home Safety Awareness Awareness of Need for Assistance at Home Good Awareness Ability to Problem Solve Emergency Able to Problem Solve Situations Home Safety Comments Pt able to accurately answer all home safety questions 100% . Medication Management Medication Management Comments prior pt was completely independent Money Management Money Management Comments prior pt completely independent Meal Preparation Meal Preparation Comments Pt will benefit from assist due to decreased balance and activity tolerance at this time. Home Care Administrator Home Care Administrator Comments Pt will benefit from assist due to decreased balance and activity tolerance at this time. M6 OT- IP Functional Cognition Start: 03/13/23 11:45 Freq: Status: Active Protocol: Document 03/15/23 12:59 [facility] (Rec: 03/15/23 14:19 [facility] [id number]) Cognitive Factors Limiting Selfcare Function Cognitive Comments Cognitive Assessment Comments Pt needing cues to dry herself off more before putting on clothing and cie to completeness for pericare needs. Pt still needing cues to keep the FWW close to her at all times. M7 OT- IP Mobility and Balance Start: 03/13/23 11:45 Freq: Status: Active Protocol: Document 03/15/23 12:59 [facility] (Rec: 03/15/23 14:19 [facility] [id number]) OT- Bed Mobility Assessment Supine to Sit Supine to Sit Assist Standby Assistance OT-Transfer Assessment Sit to and From Stand Sit to and from Stand Contact Guard Assistance Transfers Transfer Ability Standby Assistance,Contact Guard Assistance Technique Transfer Destination Bed,Chair,Shower Stall Transfer Technique Stand Step Pivot Devices Transfer Assistive Devices Gait Belt,Front Wheeled Walker Comments Mobility Comments Pt for the needing occasional CGA with FWW and slight loss of balance to the left. At times pt able to walk with close SBA. OT- Balance Assessment Sitting Balance and Reactions Static Sitting Balance Ability Normal Dynamic Sitting Balance Ability Normal Standing Balance and Reactions Static Standing Balance Ability Good Dynamic Standing Balance Ability Fair M8 OT- IP Objective Assessments Start: 03/13/23 11:45 Freq: Status: Active Protocol: Document 03/13/23 10:40 [facility] (Rec: 03/13/23 12:10 [facility] [id number]) OT Gross Range of Motion Upper Extremity Range of Motion Assessment Within Functional Limits OT Strength Upper Extremity Strength Assessment Within Functional Limits Comments Strength Comments WFl for age and lifestyle. OT- Coordination Assessment Upper Extremity Finger to Nose Test Within Functional Limits M9 OT- IP Assessment and Plan Start: 03/13/23 11:45 Freq: Status: Active Protocol: Document 03/15/23 12:59 [facility] (Rec: 03/15/23 14:19 [facility] [id number]) OT Summary Assessment and Plan Potential Rehabilitation Potential Excellent Analytic Complexity at Evaluation Moderate Summary OT Impairments Balance,Functional Mobility, Dressing,Toileting,Bathing, Toilet Transfers,Shower Transfers,Activity Tolerance Progress Towards Goals Progressing Toward Goals Assessment Summary Pt able to perform a shower, however seated and having slight loss of balance while standing and needing CGA and use of grab bars to readjust and come to stand. Pt is far from her baseline of independent with all needs and looking to go to skilled rehab. Pt really pushing for to go home to her son's house at this time. Therefore pending progress home with assist and home health versus skilled rehab, Goals Dressing Goal Independent Toileting Goal Independent Bathing Goal Independent Toilet Transfer Goal Independent Shower Transfer Goal Independent Days to Meet Goals 9 Frequency of Treatment Frequency Of Treatment Once a Day Treatment Plan OT Treatment Plan ADL Training,Functional Mobility,Patient/Family Education,Discharge Planning Other Treatment Recommendations and Next redo SLUMs, Romance making Part Treatment Focus B Discharge Recommendations OT Discharge Recommendations Home with 23/04 Assist Available,Home Health,SNF Rehab,Home vs SNF Home Equipment Needs shower chair, fww Transportation Needs at Discharge Private Vehicle,Wheelchair/ Cabulance
--- NOTE | 2023-03-15 14:32 | PM.PN.1 ---
Subjective Subjective Interval history: Patient feels much improved this morning. Sodium up to 130 after starting prednisone and her BP is a bit improved. creatinine did bump to 1.27 today, though patient tolerating her diet. Etiology unclear at this time. Exam Vital Signs (past 8 hours): - 03/15/23 08:57 Temperature 98.1 F Pulse Rate 95 H Respiratory Rate 16 Pulse Oximetry 95 Oxygen Flow Rate 0 Oxygen Delivery Method Room Air Oxygen Flow Rate 0 Narrative Exam Narrative: GEN: no acute distress, appears ill, fatigued HEENT: moist mucous membranes, PERRL NECK: trachea midline, no JVD CV: regular rate and rhythm, no murmurs PULM: clear bilaterally ABD: soft, nontender, nondistended, no organomegaly EXT: warm and well perfused with no edema NEURO: awake, alert, oriented, no focal deficits Objective Labs 03/15/23 05:30 03/15/23 05:30 Labs: Laboratory Results - last 24 hr 03/15/23 03/15/23 03/15/23 05:30 05:30 05:30 WBC 13.8 H RBC 3.95 L Hgb 12.2 Hct 35.1 L MCV 88.9 MCH 30.8 MCHC 34.7 RDW 14.8 Plt Count 269 Neut % (Auto) 80.5 H Lymph % (Auto) 11.6 L [place] % (Auto) 5.9 Eos % (Auto) 1.2 L Baso % (Auto) 0.8 Neut # (Auto) 89596 H Lymph # (Auto) 1600 [place] # (Auto) 800 Eos # (Auto) 200 Baso # (Auto) 100 Sodium 130 L Potassium 3.9 Chloride 98 Carbon Dioxide 22 BUN 21 H Creatinine 1.27 H Estimated GFR 42 L BUN/Creatinine Ratio 16.5 Glucose 129 H Calcium 8.3 L Cortisol AM Sample 9.90 PFSH Social History household members: none Smoking Status: Never smoker alcohol intake: current Assessment & Plan Assessment & Plan narrative: # 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 -With continued hyponatremia, hypotension, recently stopping prednisone may represent adrenal insufficiency. Have restarted prednisone 10 mg daily. After starting sodium up to 130 with improvement in BP. #RADHA, present on admission, recurrence today - initially creatinine 1.18, improved to as low as 0.81 but rising again to 1.27 today. Unclear etiology, no obvious volume depletion currently. Will repeat labs tomorrow and watch today. # hypoxic resp failure 2/2 possible PNA, pulm edema, now resolved. -patient notes mild cough, urinary frequency -CXR with minimal left basilar infiltrate vs atelectasis -procal elevated at 0.8 suggesting active infection -continue rocephin and azithro -lasix 40mg IV daily ordered but will stop given euvolemic today and soft BPs. 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 Restarted prednisone as above. # Severe Acute Malnutrition -r/t medication reaction aeb 4% unintentional weight loss in 5d (severe), BMI 20.1 (severe for age), pt with 5d PO intake meeting <10% EER after taking minocycline with associated weakness, sodium 122. #possible adrenal insufficiency - with above resumption and improvement in BP and hyponatremia, likely component of adrenal insufficiency. AM cortisol was 9.9. Consider outpatient stim testing, or prolonged steroid taper after bullous pemphigoid. Code status is DNR. DVT prophylaxis with heparin subQ. Proxy is wanda Lane. Dispo: Home with vs SNF tomorrow most likely, depending on creatinine trend.
[2023-03-15 15:33] VITALS: BP 125/71; PULSE 103; RESP 15; TEMP 35.8; O2SAT 99
[2023-03-15 20:00] VITALS: BP 122/80; PULSE 77; RESP 18; TEMP 36.4; O2SAT 97
[2023-03-16 02:11] VITALS: BP 123/73; PULSE 72; RESP 18; TEMP 36.4; O2SAT 93
[2023-03-16 05:41] LABS: Add Manual Diff / Slide Review NO; Basophils Absolute Auto 100 /uL (0-100); Basophils Percent Auto 1.2 % (0-2); Eosinophils Absolute Auto 400 /uL (0-450); Eosinophils Percent Auto 3.7 % (2-4); Hematocrit 29.8 % (36-46); Hemoglobin 10.4 g/dL (12.0-16.0); Lymphocytes Absolute Auto 1400 /uL (1100-4500); Lymphocytes Percent Auto 12.7 % (25-40); Mean Corpuscular HGB Conc 34.9 % (30-36); Mean Corpuscular Hemoglobin 31.1 PG (26-34); Monocytes Absolute Auto 900 /uL (0-900); Monocytes Percent Auto 8.1 % (3-14); Neutrophils Absolute Auto 8400 /uL (1500-7000); Neutrophils Percent Auto 74.3 % (50-75); Platelet Count 331 X10^3/uL (150-400); Red Blood Cell Count 3.35 X10^6/uL (4.0-5.2); Red Cell Distribution Width 14.8 % (11.6-14.8); White Blood Cell Count 11.3 X10^3/uL (4.5-11.0)
[2023-03-16 05:51] LABS: BUN Creatinine Ratio 20.2 (6-22); Blood Urea Nitrogen 22 mg/dL (7-17); Calcium 8.3 mg/dL (8.4-10.2); Carbon Dioxide 22 mmol/L (22-32); Chloride 101 mmol/L (98-107); Estimated Glomerular Filt Rate 50 mL/min (>60); Glucose 103 mg/dL (80-110); HEMOLYSIS < 15 (0-50); Potassium 3.8 mmol/L (3.4-5.1); Sodium 131 mmol/L (137-145)
[2023-03-16] MEDS: HEPARIN 5,000 UNIT/ML VIAL 5000 UNIT SUBCUT (08:37)
[2023-03-16] MEDS: predniSONE 5 MG TABLET 10 MG PO (08:37)
[2023-03-16] MEDS: SODIUM CHLORIDE 1,000 MG TABLET 1000 MG PO ×2 (08:38→12:04)
[2023-03-16 09:00] VITALS: BP 136/84; PULSE 101; RESP 21; TEMP 36.5; O2SAT 97
--- NOTE | 2023-03-16 10:00 | PT.IPTN ---
Current Diagnoses Hypo-osmolality and hyponatremia (03/11/23) Physical Therapy Treatment Note M2 PT-IP Current Condition Start: 03/12/23 08:14 Freq: NEEDED Status: Active Protocol: Document 03/13/23 11:16 AB (Rec: 03/13/23 13:20 AB [id number]) Physical Therapy Current Condition Current Condition Evaluation Date 03/13/23 Treatment Diagnosis sepsis; hyponatremia; difficulty in walking Onset Date 03/11/23 M3 PT-IP Subjective Start: 03/12/23 08:14 Freq: NEEDED Status: Active Protocol: Document 03/16/23 10:27 TS (Rec: 03/16/23 10:46 TS [id number]) Subjective Physical Therapy Visit Type Type Treatment Note Visit Start Time 10:00 Visit Stop Time 10:22 Total Visit Minutes 23 Notes Reports feeling much better today. 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 2 Physical Therapy Visit Comments Patient Comments agreeable to do PT M4 PT-IP Mobility and Gait Start: 03/12/23 08:14 Freq: NEEDED Status: Active Protocol: Document 03/16/23 10:27 TS (Rec: 03/16/23 10:46 TS [id number]) PT-Bed Mobility Assessment Supine to Sit Supine to Sit Standby Assistance Scooting Scooting to Edge of Bed Standby Assistance PT-Transfer Assessment Sit to and From Stand Sit to and from Stand Standby Assistance,Use of Upper Extremities Equipment Transfer Assistive Device Gait Belt,Front Wheeled Walker Orthotic/Prosthetic Devices or Brace: No Comments Mobility Comments Pt found resting in bed, agreeable to PT. Supine to sit SBA minimal use of UEs into sitting HOB elevated. Sit to stand with FWW SBA, standing balance good with NBOS, cue for wider ARMANDO. She ambulated ~ 350' with FWW CGA/SBA, x2 LOB with pivoting in FWW, corrected with use of FWW no assist required. She performed stairs x6 SBA with BUE handrail assist step over step no buckling or LOB. Pt was left in room in chair with call light nearby, all needs met. Gait Assessment Gait Gait Assistance Required: Standby Assistance,Contact Guard Assist,1 Person Assist Distance (Feet) 350 Able to Maintain Weight Bearing Status Yes During Gait Assistive Devices Assistive Device None,Gait Belt,Front Wheeled Walker Orthotic/Prosthetic Devices or Brace: No Gait Deviations General Gait Pattern Narrow Based Gait Factors Limiting Gait Function Factors Limiting Gait Function Decreased Strength,Poor Balance Comments Gait Comments See mobility comments. Stair Climbing Assessment Evaluation Level of Assist On Stairs Standby Assistance Devices Stair Climbing Assistive Devices Left Railing,Right Railing Technique/Endurance Stair Climbing Direction Ascend and Descend Stair Climbing Technique Step Over Step Number of Steps Climbed 6 Comments Stair Climbing Comments See mobility comments. PT-Balance Assessment Sitting Balance and Reactions Static Sitting Balance Ability Normal Dynamic Sitting Balance Ability Normal Standing Balance and Reactions Static Standing Balance Ability Good Dynamic Standing Balance Ability Fair Device Used FWW Comments Other Balance Tests/Deviations/Treatment X2 LOB during gait, corrected : with use of FWW. M5 PT-IP Objective Assessments Start: 03/12/23 08:14 Freq: NEEDED Status: Active Protocol: Document 03/13/23 11:16 AB (Rec: 03/13/23 13:20 AB [id number]) Orientation Orientation/Cognition Level of Alertness Alert Orientation Name,Age,Place,Situation Language Function Ability Hard of Hearing Safety Awareness Decreased Safety Awareness Memory Description No Deficits Noted Gross Range of Motion Lower Extremity ROM Assessment Within Functional Limits Strength Lower Extremity Strength Hip 4-/5 Knee 4-/5 Ankle 4-/5 Muscle Tone Muscle Tone WNL Yes M6 PT-IP Treatment Start: 03/12/23 08:14 Freq: NEEDED Status: Active Protocol: Document 03/16/23 10:27 TS (Rec: 03/16/23 10:46 [id number]) Physical Therapy Treatment Education Education Provided Safety M7 PT-IP Assessment and Plan Start: 03/12/23 08:14 Freq: NEEDED Status: Active Protocol: Document 03/16/23 10:27 TS (Rec: 03/16/23 10:46 [id number]) PT Summary Assessment and Plan Potential Rehabilitation Potential Good Summary Impairments Pain,ROM,Strength,Balance,Tone ,Bed Mobility,Transfers,Gait, Activity Tolerance Progress Towards Goals Progressing Toward Goals Assessment Summary Pt is progressing well with her mobility this session. She is SBA with all bed mobility and sit to stands. She progressed her ambulation to ~ 350' in [facility] CGA/SBA, she had x2 LOB in FWW with pivoting/turning, corrected balance with use of FWW. She performed stairs x6 SBA with BUE support, no LOB or buckling. PT is recommending at this time to return home with assist from son. Goals Bed Mobility Goal Independent Transfer Goal Independent,Front Wheeled Walker Gait Goal Independent,Front Wheel Walker Gait Distance 250 Other Goals improve transfers and ambulation without AD 300 ft mod I Days to Meet Goals 10 Frequency of Treatment Frequency Of Treatment Once a Day Treatment Plan Physical Therapy Treatment Plan Bed Mobility Training,Transfer Training,Gait Training, Therapeutic Exercise,Balance Retraining,Discharge Planning, Hot or Cold Pack,Neuromuscular Re-ed,Coordination Retraining Other Recommendations and Next Treatment Continue to progress gait and Focus assess stairs. Precautions Other Precautions [place], O2 sat Recommendations To Nursing Amount of Assist Needed 1 Person Assist Discharge Recommendations PT Discharge Recommendations SNF Rehab Equipment Needed for Home Before FWW: if pt goes home and not Discharge safe without AD Transportation Needs at Discharge Private Vehicle,Wheelchair/ Cabulance
--- NOTE | 2023-03-16 10:17 | OT.IP.TRT ---
Current Diagnoses Hypo-osmolality and hyponatremia (03/11/23) Occupational Therapy Treatment Note M2 OT-IP Current Condition Start: 03/13/23 11:45 Freq: Status: Active Protocol: Document 03/13/23 10:40 [facility] (Rec: 03/13/23 12:10 [facility] [id number]) Occupational Therapy Current Condition Current Condition Evaluation Date 03/13/23 Treatment Diagnosis Acute hyponatremia Diagnosis Onset Date 03/11/23 M3 OT- IP Subjective and Pain Start: 03/13/23 11:45 Freq: Status: Active Protocol: Document 03/16/23 09:57 AMS (Rec: 03/16/23 10:17 AMS [id number]) OT- Subjective Occupational Therapy Visit Type Type Treatment Note Visit Start Time 09:00 Visit Stop Time 09:45 Total Visit Minutes 45 Occupational Therapy Visit Comments Patient Comments Blanca was agreeable to work with therapist this a.m. Denial of any pain/discomfort. Report of 'feeling much better then compared to a couple of days ago'. M4 OT- IP ADL's Start: 03/13/23 11:45 Freq: Status: Active Protocol: Document 03/15/23 12:59 [facility] (Rec: 03/15/23 14:19 [facility] [id number]) OT [id number] Comments OT Self-Feeding Comments Not at meal time. OT ADL-Grooming General Evaluation Grooming Ability Independent Areas Needing Assistance Retrieving/Set-up of Grooming Items Comments OT Grooming Comments Able to do but needing to hold to the sink at times for balance. OT ADL-Oral Care General Eval Oral Care Ability Independent Areas of Assistance Retrieving/Set-Up of Items Comments Oral Care Comments Able to do while standing with FWW in front of the sink. OT ADL-Dressing General Eval Lower Body Dressing Ability Independent,Standby Assistance Comments OT Dressing Comments Pt able to do all dressing needs with clos SBA for balance. OT ADL-Bathing Bathing Type Bathing Type Shower General Evaluation Bathing Ability Contact Guard Assistance Comments OT Bathing Comments Occasional CGA for balance when pt standing to do pericare needs. VC for completeness to dry herself. Pt able to sit for most of the shower. Pt's family looking to get a shower chair for her to use. M5 OT- IP IADL's Start: 03/13/23 11:45 Freq: Status: Active Protocol: Document 03/13/23 10:40 [facility] (Rec: 03/13/23 12:10 [facility] [id number]) OT-Instrumental Activities of Daily Living Deficits IADL Deficits Identified Deficits Home Safety Awareness Awareness of Need for Assistance at Home Good Awareness Ability to Problem Solve Emergency Able to Problem Solve Situations Home Safety Comments Pt able to acccurately answer all home safety questions 100% . Medication Management Medication Management Comments prior pt was completely independent Money Management Money Management Comments prior pt completely independent Meal Preparation Meal Preparation Comments Pt will benefit from assist due to decreased balance and activity tolerance at this time. Booky Booky Comments Pt will benefit from assist due to decreased balance and activity tolerance at this time. M6 OT- IP Functional Cognition Start: 03/13/23 11:45 Freq: Status: Active Protocol: Document 03/15/23 12:59 [facility] (Rec: 03/15/23 14:19 [facility] [id number]) Cognitive Factors Limiting Selfcare Function Cognitive Comments Cognitive Assessment Comments Pt needing cues to dry herself off more before putting on clothing and cie to completeness for pericare needs. Pt still needing cues to keep the FWW close to her at all times. M7 OT- IP Mobility and Balance Start: 03/13/23 11:45 Freq: Status: Active Protocol: Document 03/15/23 12:59 [facility] (Rec: 03/15/23 14:19 [facility] [id number]) OT- Bed Mobility Assessment Supine to Sit Supine to Sit Assist Standby Assistance OT-Transfer Assessment Sit to and From Stand Sit to and from Stand Contact Guard Assistance Transfers Transfer Ability Standby Assistance,Contact Guard Assistance Technique Transfer Destination Bed,Chair,Shower Stall Transfer Technique Stand Step Pivot Devices Transfer Assistive Devices Gait Belt,Front Wheeled Walker Comments Mobility Comments Pt for the needing occasional CGA with FWW and slight loss of balance to the left. At times pt able to walk with close SBA. OT- Balance Assessment Sitting Balance and Reactions Static Sitting Balance Ability Normal Dynamic Sitting Balance Ability Normal Standing Balance and Reactions Static Standing Balance Ability Good Dynamic Standing Balance Ability Fair M8 OT- IP Objective Assessments Start: 03/13/23 11:45 Freq: Status: Active Protocol: Document 03/13/23 10:40 [facility] (Rec: 03/13/23 12:10 [facility] [id number]) OT Gross Range of Motion Upper Extremity Range of Motion Assessment Within Functional Limits OT Strength Upper Extremity Strength Assessment Within Functional Limits Comments Strength Comments WFl for age and lifestyle. OT- Coordination Assessment Upper Extremity Finger to Nose Test Within Functional Limits M9 OT- IP Assessment and Plan Start: 03/13/23 11:45 Freq: Status: Active Protocol: Document 03/16/23 09:57 [facility] (Rec: 03/16/23 10:17 [facility] [id number]) OT Summary Assessment and Plan Potential Rehabilitation Potential Excellent Summary Assessment Summary Re-administration of SLUMS; Total Score = 25 versus indicating Mild Cognitive Impairment (versus initial score = 15). Administration of [employer] Making Test, Parts A and B. Performance on Part A indicates Mild to moderate cognitive impairment. Blanca was unable to successfully complete Part B; however, able to successfully alternate drawing lines between numbers and letters up to the letter J . Performance on [employer] Making Test Part B indicates Significant and severe cognitive impairment. However, she is demonstrating better insight into current medical status and was able to self- correct errors; would recommend 24-7 supervision and support. Treatment Plan OT Treatment Plan ADL Training,Functional Mobility,Patient/Family Education,Discharge Planning Discharge Recommendations OT Discharge Recommendations Home with 24/7 Assist Available,Home Health,SNF Rehab,Home vs SNF Home Equipment Needs shower chair, fww Transportation Needs at Discharge Private Vehicle,Wheelchair/ Cabulance
--- NOTE | 2023-03-16 11:25 | OT.IP.TRT ---
Current Diagnoses Hypo-osmolality and hyponatremia (03/11/23) Occupational Therapy Treatment Note M2 OT-IP Current Condition Start: 03/13/23 11:45 Freq: Status: Active Protocol: Document 03/13/23 10:40 [facility] (Rec: 03/13/23 12:10 [facility] [id number]) Occupational Therapy Current Condition Current Condition Evaluation Date 03/13/23 Treatment Diagnosis Acute hyponatremia Diagnosis Onset Date 03/11/23 M3 OT- IP Subjective and Pain Start: 03/13/23 11:45 Freq: Status: Active Protocol: Document 03/16/23 11:58 [facility] (Rec: 03/16/23 12:19 [facility] [id number]) OT- Subjective Occupational Therapy Visit Type Type Treatment Note Visit Start Time 11:25 Visit Stop Time 11:58 Total Visit Minutes 23 Occupational Therapy Visit Comments Patient Comments Pt's family requesting another visit for caregiver training. Patient/Caregiver Goals To go home. OT Pain Assessment Pain When Pain Assessed At Rest Pain Present Pain Present Denied Pain M4 OT- IP ADL's Start: 03/13/23 11:45 Freq: Status: Active Protocol: Document 03/16/23 11:58 [facility] (Rec: 03/16/23 12:19 [facility] [id number]) OT ADL-Dressing Comments OT Dressing Comments Edcuated pt's family to be SBA for needs due to pt's occasional LOB. OT ADL-Bathing Comments OT Bathing Comments Suggested best to have a shower chair with arm rest and install grab bars at home. Pt to stay at son's house but shower at her house due to she has a walk in shower. M5 OT- IP IADL's Start: 03/13/23 11:45 Freq: Status: Active Protocol: Document 03/13/23 10:40 [facility] (Rec: 03/13/23 12:10 [facility] [id number]) OT-Instrumental Activities of Daily Living Deficits IADL Deficits Identified Deficits Home Safety Awareness Awareness of Need for Assistance at Home Good Awareness Ability to Problem Solve Emergency Able to Problem Solve Situations Home Safety Comments Pt able to accurately answer all home safety questions 100% . Medication Management Medication Management Comments prior pt was completely independent Money Management Money Management Comments prior pt completely independent Meal Preparation Meal Preparation Comments Pt will benefit from assist due to decreased balance and activity tolerance at this time. Senior Finance Manager Senior Finance Manager Comments Pt will benefit from assist due to decreased balance and activity tolerance at this time. M6 OT- IP Functional Cognition Start: 03/13/23 11:45 Freq: Status: Active Protocol: Document 03/16/23 11:58 [facility] (Rec: 03/16/23 12:19 [facility] [id number]) Cognitive Factors Limiting Selfcare Function Cognitive Comments Cognitive Assessment Comments Pt scored 189 seconds on [place] making Part B which still implies severe impairments for visual attention, speed of processing, mental flexibility, executive functioning, and task switching. Pt's Na which maybe also affecting her cognitive function. Pt's family aware of suggestion not to drive at this time and to have supervision for IADl needs and assist as needed. M7 OT- IP Mobility and Balance Start: 03/13/23 11:45 Freq: Status: Active Protocol: Document 03/16/23 11:58 [facility] (Rec: 03/16/23 12:19 [facility] [id number]) OT-Transfer Assessment Sit to and From Stand Sit to and from Stand Standby Assistance Transfers Transfer Ability Standby Assistance,Contact Guard Assistance Technique Transfer Destination Bed,Chair Transfer Technique Stand Step Pivot Devices Transfer Assistive Devices Gait Belt,Front Wheeled Walker ,4 Wheeled Walker Comments Mobility Comments Pt close SBA with FWW and occasional CGA with 4ww and able to go up and down the steps with her son's assist. OT- Balance Assessment Sitting Balance and Reactions Static Sitting Balance Ability Normal Dynamic Sitting Balance Ability Normal Standing Balance and Reactions Static Standing Balance Ability Good Dynamic Standing Balance Ability Fair M8 OT- IP Objective Assessments Start: 03/13/23 11:45 Freq: Status: Active Protocol: Document 03/13/23 10:40 [facility] (Rec: 03/13/23 12:10 [facility] [id number]) OT Gross Range of Motion Upper Extremity Range of Motion Assessment Within Functional Limits OT Strength Upper Extremity Strength Assessment Within Functional Limits Comments Strength Comments WFl for age and lifestyle. OT- Coordination Assessment Upper Extremity Finger to Nose Test Within Functional Limits M9 OT- IP Assessment and Plan Start: 03/13/23 11:45 Freq: Status: Active Protocol: Document 03/16/23 11:58 [facility] (Rec: 03/16/23 12:19 [facility] [id number]) OT Summary Assessment and Plan Potential Rehabilitation Potential Excellent Summary OT Impairments Balance,Functional Mobility, Dressing,Toileting,Bathing, Toilet Transfers,Shower Transfers,Activity Tolerance Progress Towards Goals Progressing Toward Goals Assessment Summary Pt now looking to go home to her son's house with 24/7 available assist. Pt is still a little unsteady on her feet and will benefit from use of FWW or 4ww. Pt's family to get a shower chair for pt at well . Pt did not do well with [place] Making Part B again and family aware pt not to drive at this time. Pt to go to her son's house with 24/7 available assist. Goals Dressing Goal Independent Toileting Goal Independent Bathing Goal Independent Toilet Transfer Goal Independent Shower Transfer Goal Independent Days to Meet Goals 7 Frequency of Treatment Frequency Of Treatment Twice a Day Treatment Plan OT Treatment Plan ADL Training,Functional Mobility,Patient/Family Education,Discharge Planning Discharge Recommendations OT Discharge Recommendations Home with 24/7 Assist Available,Home Health Home Equipment Needs shower chair, fww/4ww Transportation Needs at Discharge Private Vehicle
--- NOTE | 2023-03-16 11:45 | P.DS_ITS ---
History of Present Illness History of Present Illness Date Patient Seen: 03/16/23 Time Patient Seen: 10:50 Chief complaint: sent by [facility], weak, low B/P Narrative: Per admitting provider, Blanca Tang is an 82yo F with PMH of bullous pemphigoid followed by derm who presents with increased urinary frequency, weakness and lack of appetite for 5 days. Patient states she began feeling poorly last week while taking minocycline for her bullous pemphigoid. She was directed to stop taking it by derm and she thought after she would feel better but she didn't. She had progressive weakness and poor po intake and has eaten or drank very little in 5 days. She also notes a mild cough recently. She is normally active and gardening so this is unlike her. She denies NV, diarrhea, CP, SOB, abd pain, headache, dizziness or visual changes. In the ED patient was found to have a sodium of 125, Cr 1.18, with dry mucous membranes and be hypotensive to 92/70. Mildly elevated temp of 99.2F. She received 1.5L fluid bolus. CXR showed possible PNA vs atelectasis. UA with pyuria but squamous cells present. Discharge Providers Provider Date of admission: 03/11/23 15:40 Discharge Date: 03/16/23 Primary care physician: Ruth Tao MD Consults: 03/11/23 18:03 Consult to Dietitian, Adult Routine Comment: Reason For Exam: significant weight loss with decrease in intake 03/11/23 18:29 Consult to Occupational Therapy Evaluate & Treat Comment: Physician Instructions: Evaluate and treat Consult to Physical Therapy Evaluate & Treat Comment: Physician Instructions: Evaluate and Treat 03/13/23 17:46 Consult to KNITTING MACHINE FIXER - Manager Equipment Routine Comment: PT rec SNF Discharge provider: Angelito Chopra DO Summary Hospital Course Discharge Diagnosis: # 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 # UTI ruled out # fatigue and weakness # bullous pemphigoid # Severe Acute Malnutrition #adrenal insufficiency Hospital Course: This is an 82 year old female admitted with weakness and hyponatremia. On initial evaluation she was also hypoxic, found to have a pneumonia and was treated for a bacterial pneumonia while in the hospital fully. Her sodium in itially worsened with fluids, and despite urine sodium of 14 she was treated like an SIADH with salt tablets and fluid restriction to a sodium of 126. She remained weak, but then endorsed having stopped her prednisone for bullous pemphigoid flare about when her symptoms started. She was restarted on 10 mg of prednisone daily with improvement further in her sodium to 131, and marked improvement in weakness. It is highly probable symptoms are related to adrenal insufficiency. I recommend continuing prednisone at 10 mg daily with a very long taper, either at the direction of PCP, quantitative researcher, industrial training specialist, or even endocrinology at the discretion of her primary care provider. She was initially recommended for SNF, however with continued improvement in sodium after initiation of her prednisone, she was subsequently recommended for home with home health. Time Spent with Patient Time spent: Greater than 30 minutes Exam Vital Signs (past 8 hours): - 03/16/23 09:00 Temperature 97.7 F Pulse Rate 101 H Respiratory Rate 21 Blood Pressure 136/84 Pulse Oximetry 97 Oxygen Flow Rate 0 Oxygen Delivery Method Room Air Oxygen Flow Rate 0 Narrative Exam Narrative: GEN: no acute distress, appears ill, fatigued HEENT: moist mucous membranes, PERRL NECK: trachea midline, no JVD CV: regular rate and rhythm, no murmurs PULM: clear bilaterally ABD: soft, nontender, nondistended, no organomegaly EXT: warm and well perfused with no edema NEURO: awake, alert, oriented, no focal deficits Objective Labs 03/16/23 04:55 03/16/23 04:55 Labs: Laboratory Results - last 24 hr 03/16/23 03/16/23 04:55 04:55 WBC 11.3 H RBC 3.35 L Hgb 10.4 L Hct 29.8 L MCV 89.0 MCH 31.1 MCHC 34.9 RDW 14.8 Plt Count 331 Neut % (Auto) 74.3 Lymph % (Auto) 12.7 L [place] % (Auto) 8.1 Eos % (Auto) 3.7 Baso % (Auto) 1.2 Neut # (Auto) 8400 H Lymph # (Auto) 1400 [place] # (Auto) 900 Eos # (Auto) 400 Baso # (Auto) 100 Sodium 131 L Potassium 3.8 Chloride 101 Carbon Dioxide 22 BUN 22 H Creatinine 1.09 H Estimated GFR 50 L BUN/Creatinine Ratio 20.2 Glucose 103 Calcium 8.3 L PFSH Social History household members: none Smoking Status: Never smoker alcohol intake: current Discharge Plan Discharge Plan Patient Disposition: Home Health Service Provider Discharge Comment: You were admitted to the hospital with weakness and a low sodium level. You were treated for a possible pneumonia and completed treatment here. Sodium level is possibly related to adrenal insufficiency. Recommend continuing 10 mg prednisone for a couple of weeks and follow up with endocrinology, rhematology, or PCP for assistance in trying to get off of prednisone if possible. Try to limit total fluid intake to less than 1.5 L per day. Discharge orders & Medications Prescriptions: New sodium chloride 1,000 mg Tablet,Soluble 1,000 mg PO TIDWM 30 Days Qty: 90 0RF Continued prednisone 10 mg tablet 10 mg PO DAILY Rx Instructions: patient doing prednisone taper, last day next sunday minocycline 100 mg capsule 100 mg PO BID Patient Comments: TAKE ONE CAPSULE BY MOUTH TWICE DAILY WITH A FULL GLASS OF WATER- DO NOT LIE DOWN 1 HOUR AFTER TAKING calcium 500 mg Tablet 500 mg PO DAILY vitamin B complex [B Complex-Vitamin B12] Tablet 1 tab PO 2XW rosuvastatin 5 mg tablet 5 mg PO 3XW Patient Comments: TAKE ONE TABLET BY MOUTH ONE TIME DAILY cholecalciferol (vitamin D3) [Vitamin D3] 50 mcg (2,000 unit) Capsule 50 mcg PO DAILY niacinamide 500 mg Tablet Extended Release 500 mg PO DAILY Medication counseling provided by Pharmacist: Yes Follow up/Referrals: Ruth Tao MD [Primary Care Provider] - (*Appt on Sunday, March at 11:00am with . [phone] ) Diet/Activity/Treatments Diet: Diet as Tolerated and Regular Diet comment: No more than 1.5 L of total fluid in a day. Activity: As tolerated, no restrictions Visit Report/Discharge Packet Instructions: DI for Pneumonia -- Adult, DI for Hyponatremia, How to Prevent Falls Stand Alone Forms: Patient Portal/API, Stroke Signs & Symptoms Discharge Data Primary Care Provider: Ruth Tao Discharges patient from system. Discharge Date/Time: 03/16/23 13:24
[2023-03-16 12:30] VITALS: BP 128/77; PULSE 94; RESP 19; TEMP 36.6; O2SAT 97
--- NOTE | 2023-03-16 15:24 | CM.DPNOTE ---
DC Note Discharge home today to son and ALYCE's home in [place], cleared by therapies for this plan Had lengthy conversation w/patient, son Domingo and ALYCE to review plan. Patient feeling much better today and eager to return home w/her family to assist, requests HH. Patient will go home w/family today and plans to get back to her house next week Patient requests home health next week, once home to [place], and has no agency preference Referral sent to [facility] based on availability. [place] brochure provided to patient and family In addition, travel insurance form completed and signed by Dr Chopra releasing patient from payment for a cancelled trip she had scheduled last week. This form scanned into chart by Ashlee, administration manager F2F completed, HH order placed Plan: Discharge home w/family, [facility] services and close outpatient follow up via family auto JW
== END 2023-03-16 13:24 | disposition home health service (06) | DRG 643 ==
LOC: ED 13:31 → AC 15:41
PROVIDERS: Internal Medicine; Admitting Provider Student in an Organized Health Care Education/Training Program; Emergency Provider Emergency Medicine; PCP Internal Medicine; Referring Provider Emergency Medicine; Visit Provider Student in an Organized Health Care Education/Training Program
DX: E22.2 Syndrome of inappropriate secretion of antidiuretic hormone (principal); E43 Unspecified severe protein-calorie malnutrition; J18.9 Pneumonia, unspecified organism; J96.91 Respiratory failure, unspecified with hypoxia; L12.0 Bullous pemphigoid; N17.9 Acute kidney failure, unspecified; E27.40 Unspecified adrenocortical insufficiency; Z66 Do not resuscitate; Z20.822 Contact with and (suspected) exposure to COVID-19; Z68.20 Body mass index [BMI] 20.0-20.9, adult
CPT/HCPCS: 36415; 71045; 80048; 80053; 81001; 81003; 82533; 82550; 82570; 83605; 83735; 84145; 84300; 84443; 84484; 85025; 87040; 87086; 87633; 93005; 96365; 96367; 97110; 97116; 97162; 97166; 97530; 97535; 99284; 99285; J0696; J1644; J1940

== ENCOUNTER → 2023-05-17 11:05 | Outpatient (CLI) | payer MEDICARE, OTHER, SELFPAY ==
[2023-03-11 17:43] VITALS: BMI 20.1
--- NOTE | 2023-05-17 | DI.MG.S_ITS ---
BILATERAL DIGITAL SCREENING MAMMOGRAM 3D/2D WITH CAD: 05/17/2023 CLINICAL: Routine screening. Comparison is made to exams dated: 11/22/2021 mammogram, 11/12/2020 mammogram, and 10/29/2019 mammogram - [facility]. There are scattered areas of fibroglandular density in both breasts (category b / 25%-50% glandular tissue). Current study was also evaluated with a Computer Aided Detection (CAD) system. No significant masses, calcifications, or other findings are seen in either breast. There has been no significant interval change. IMPRESSION: NEGATIVE There is no mammographic evidence of malignancy. A 1 year screening mammogram is recommended. Based on the Tyrer Cuzick model (a risk assessment model) the patient's lifetime risk is 0.2% and her 10 year risk is 0.0%. According to the ACR, ACS, and NCCN guidelines, an annual breast MRI exam along with mammogram is recommended if the patient's lifetime risk is 20% or greater. This exam was interpreted at Station ID: [id number]. NOTE: For mammograms, a report in lay terms will be sent to the patient. Approximately 15% of breast malignancies will not be visualized mammographically. In the management of a palpable breast mass, a negative mammogram must not discourage biopsy of a clinically suspicious lesion. Electronically Signed By: Yamile hannah/parisa:05/17/2023 17:02:23 letter sent: Normal Exam ACR BI-RADS Category 1: Negative [id number]
== END ==
PROVIDERS: PCP Internal Medicine; Referring Provider Internal Medicine; Visit Provider Internal Medicine
DX: Z12.31 Encounter for screening mammogram for malignant neoplasm of breast (principal)
CPT/HCPCS: 77063; 77067

== ENCOUNTER 2023-06-04 09:51 | Emergency (ER) | payer MEDICARE, OTHER, SELFPAY ==
[2023-03-11 17:43] VITALS: BMI 20.1
[2023-06-04] VITALS (7 sets, daily range): BP systolic 158–200; BP diastolic 83–92; PULSE 65–97; RESP 13–17; TEMP 36.6; O2SAT 96–100; BMI 20.9
--- NOTE | 2023-06-04 10:09 | DI.CT.S_ITS ---
PROCEDURE: CT HEAD/BRAIN WO CON INDICATIONS: unwit fall Sat/no recall of events. TECHNIQUE: Noncontrast 4.5 mm thick angled axial sections acquired from the foramen magnum to the vertex, with coronal and sagittal reformats. For radiation dose reduction, the following was used: automated exposure control, adjustment of mA and/or kV according to patient size. COMPARISON: None. FINDINGS: Image quality: Excellent. CSF spaces: Basal cisterns are patent. No extra-axial fluid collections. The ventricles are symmetric in size and shape. Brain: No intracranial bleeds or masses. There is cerebral volume loss for age, with resultant ventricular and sulcal prominence. There are periventricular and deep white matter chronic small vessel ischemic changes. There is intracranial internal carotid artery atherosclerosis. Skull and face: Calvarium and visualized facial bones appear intact, without suspicious lesions. Sinuses: Visualized sinuses and mastoids are clear. IMPRESSION: 1. No acute intracranial abnormalities. 2. Cerebral volume loss and chronic microvascular ischemic changes. Dictated by: Kendra Emery M.D. on 06/04/2023 at 10:33 Approved by: Kendra Emery M.D. on 06/04/2023 at 10:36
--- NOTE | 2023-06-04 10:09 | DI.CT.S_ITS ---
PROCEDURE: CT CERVICAL SPINE WO CON INDICATIONS: unwit fall Sat/no recall of events. TECHNIQUE: Noncontrast 3 mm thick sections acquired from the skull base to the T4 level. Sagittal and coronal reformats were then constructed. For radiation dose reduction, the following was used: automated exposure control, adjustment of mA and/or kV according to patient size. COMPARISON: None. FINDINGS: Image quality: Excellent. Bones: No fractures or dislocations. Loss of cervical lordosis. Moderate to severe changes noted in cervical spine. Visualized superior ribs are intact. Soft tissues: Prevertebral soft tissues are normal in thickness. No paravertebral hematomas. No apical pneumothoraces. IMPRESSION: No cervical spine fractures. Dictated by: Kendra Emery M.D. on 06/04/2023 at 10:36 Approved by: Kendra Emery M.D. on 06/04/2023 at 10:37
--- NOTE | 2023-06-04 10:09 | DI.RAD.S_ITS ---
PROCEDURE: XR RIBS LT MIN 3V W CXR1V INDICATIONS: unwit fall Sat/no recall of events. TECHNIQUE: 2 views of the left ribs were acquired, along with a single view chest. COMPARISON: [facility], CR, XR CHEST 1V, 03/13/2023, 11:43. [facility], CT, CT CERVICAL SPINE WO CON, 06/04/2023, 10:32. [facility], CT, CT HEAD/BRAIN WO CON, 06/04/2023, 10:32. FINDINGS: Surgical changes and devices: None. Bones and chest wall: No fractures or dislocations. No suspicious bony lesions. Age-appropriate bony degenerative changes are seen. Overlying soft tissues appear unremarkable. Lungs and pleura: No pleural effusions or pneumothorax. Lungs appear clear. Mediastinum: The cardiac contours are within normal limits. The aorta demonstrates calcification and tortuosity. IMPRESSION: No displaced rib fracture or pneumothorax can be seen. Dictated by: Suresh Thibodeaux M.D. on 06/04/2023 at 9:53 Approved by: Suresh Thibodeaux M.D. on 06/04/2023 at 9:55
--- NOTE | 2023-06-04 11:25 | ED.HEATRA ---
HPI - Head Injury General Chief complaint: Head Injury Stated complaint: fell sunday and no recollection of it Time Seen by Provider: 06/04/23 10:06 Source: patient Mode of arrival: Ambulatory History of Present Illness HPI Narrative: 83-year-old female presents for evaluation of head injury 2 days ago. Patient states that 2 days ago was the anniversary of her son's and she had multiple alcoholic beverages. She states after drinking she woke up in her bed with some blood on her pillow and a bump on her head. She felt slightly woozy when she woke up however as she went throughout the day she felt better. After reading online about signs of concussion she figured it would be better to get checked in the emergency department. She states that she is up-to-date on her tetanus shot. Patient has been asymptomatic since yesterday. Today she feels well, minor bruising on her lower left ribcage. Related Data Home Medications Medication Instructions Recorded Confirmed calcium 500 mg tablet 500 mg PO DAILY 03/11/23 03/11/23 cholecalciferol (vitamin D3) 50 50 mcg PO DAILY 03/11/23 03/11/23 mcg (2,000 unit) capsule (Vitamin D3) minocycline 100 mg capsule 100 mg PO BID 03/11/23 03/11/23 niacinamide 500 mg tablet,extended 500 mg PO DAILY 03/11/23 03/11/23 release prednisone 10 mg tablet 10 mg PO DAILY 03/11/23 03/11/23 rosuvastatin 5 mg tablet 5 mg PO 3XW 03/11/23 03/11/23 vitamin B complex (B 1 tab PO 2XW 03/11/23 03/11/23 Complex-Vitamin B12 tablet) Allergies Allergy/AdvReac Type Severity Reaction Status Date / Time fluorouracil [FLUOROURACIL] Allergy Intermediate SKINRX Verified 03/11/23 15:13 minocycline AdvReac Intermediate fatigue Verified 03/11/23 15:13 and nausea Review of Systems Review of Systems Narrative: CONSTITUTIONAL- Denies: fever, chills, fatigue HEENT- Denies: sore throat, nosebleed, vision changes RESPIRATORY- Denies: shortness of breath, cough, wheezing CARDIAC- Denies: chest pain, edema, orthopnea GI- Denies: abdominal pain, nausea, vomiting, constipation, diarrhea - Denies: frequency, dysuria, hematuria, flank pain MSK- Denies: extremity pain, extremity swelling, joint pain, joint swelling SKIN- Reports: abrasion, scalp Denies: rash, itching, burn, swelling NEUROLOGICAL- Denies: headache, numbness, weakness, dizziness PSYCHIATRIC- Denies: anxiety, depression, suicidal ideation, homicidal ideation Patient History Social History household members: none Smoking Status: Never smoker alcohol intake: current Smoking Status: Never smoker alcohol intake frequency: 0-2 drinks per day Substance Use Type: does not use Exam Initial Vital Signs Initial Vital Signs: Vital Signs Temperature 97.8 F 06/04/23 10:07 Pulse Rate 97 H 06/04/23 10:07 Respiratory Rate 17 06/04/23 10:07 Blood Pressure 200/92 H 06/04/23 10:07 Pulse Oximetry 98 06/04/23 10:07 Oxygen Delivery Method Room Air 06/04/23 10:07 Const: Well-nourished, Well-developed, appears stated age Eyes: PERRL, EOMI, conjunctiva normal ENT: Atraumatic, dentition normal, mucous membranes moist Cardiac: regular rate, regular rhythm RESP: unlabored, clear bilaterally, no wheezing GI: Atraumatic, soft, nontender, nondistended, no rebound, no guarding MSK: Atraumatic, full range of motion, pulses equal Skin: Warm, Dry, superficial abrasion right posterior scalp, no active bleeding, no laceration Neuro: AO x3, CN II-XII grossly intact, moves all extremities Psych: affect normal, mood normal, not suicidal, not homicidal Course Course Course Narrative: Well-appearing patient presenting for evaluation of head injury after drinking alcohol. GCS 15, NIH 0, patient is not use blood thinners. She is up-to-date on her tetanus shot. Due to age and alcohol use at the time of injury will obtain CT of the head. Orders Ordered: ED Orders 06/04/23 10:09 CT cervical spine wo con Stat CT head/brain wo con Stat XR ribs LT min 3V w CXR1V Stat Reevaluation(s) Reevaluation #1: Imaging is negative for acute findings. Patient informed of results. She was advised against excessive alcohol use. Patient is happy to know that imaging was normal. ED return precautions discussed at bedside. Patient expressed understanding of the plan and is in agreement at this time. All questions answered at the time of discharge. Vital Signs Vital signs: Vital Signs - 8 hr 06/04/23 11:18 06/04/23 11:18 06/04/23 11:30 Pulse Rate 67 Respiratory Rate 13 Blood Pressure 161/92 H 158/83 H Pulse Oximetry 97 06/04/23 11:30 Pulse Rate 68 Respiratory Rate 17 Blood Pressure Pulse Oximetry 96 Discharge Plan Departure Patient Disposition: Home Clinical Impression: Closed head injury, Abrasion of scalp Instructions: DI for Closed Head Injury Prescriptions: No Action prednisone 10 mg tablet 10 mg PO DAILY Rx Instructions: patient doing prednisone taper, last day next sunday minocycline 100 mg capsule 100 mg PO BID Patient Comments: TAKE ONE CAPSULE BY MOUTH TWICE DAILY WITH A FULL GLASS OF WATER- DO NOT LIE DOWN 1 HOUR AFTER TAKING calcium 500 mg Tablet 500 mg PO DAILY vitamin B complex [B Complex-Vitamin B12] Tablet 1 tab PO 2XW rosuvastatin 5 mg tablet 5 mg PO 3XW Patient Comments: TAKE ONE TABLET BY MOUTH ONE TIME DAILY cholecalciferol (vitamin D3) [Vitamin D3] 50 mcg (2,000 unit) Capsule 50 mcg PO DAILY niacinamide 500 mg Tablet Extended Release 500 mg PO DAILY Referrals: Ruth Tao MD [Primary Care Provider] - Stand Alone Forms: Patient Portal/API
== END 2023-06-04 11:37 | disposition home or self-care (01) ==
PROVIDERS: Emergency Provider Emergency Medicine; PCP Internal Medicine
DX: S09.90XA Unspecified injury of head, initial encounter (principal); S00.01XA Abrasion of scalp, initial encounter; X58.XXXA Exposure to other specified factors, initial encounter
CPT/HCPCS: 70450; 71101; 72125; 99284

== ENCOUNTER → 2023-10-30 09:42 | Outpatient (CLI) | payer MEDICARE, OTHER, SELFPAY ==
[2023-03-11 17:43] VITALS: BMI 20.1
--- NOTE | 2023-10-30 09:44 | DI.RAD.S_ITS ---
Bone Density Report Name: ARASELI FLORENTINO Age: 83 Sex: Female Ethnicity: White Date of : 1940 Indication: osteopenia; Referring Provider: TERESA ESTRADA Study: Bone densitometry was performed. Exam Date: October 30, 2023 Accession number: [id number] Bone Density: Region BMD T-score Z-score Classification AP Spine(L1-L4) 0.785 -2.4 0.5 Osteopenia Femoral Neck (Left) 0.616 -2.1 0.4 Osteopenia Total Hip (Left) 0.711 -1.9 0.4 Osteopenia Femoral Neck (Right) 0.571 -2.5 0.0 Osteoporosis Total Hip (Right) 0.644 -2.4 -0.1 Osteopenia Total Hip Mean 0.677 -2.2 0.2 Osteopenia World Health Organization criteria for BMD impression classify patients as: Normal (T-score at or above -1.0), Osteopenia (T-score between -1.0 and -2.5), or Osteoporosis (T-score at or below -2.5). 10-year Fracture Risk: FRAX not reported because: Some T-score for Spine Total or Hip Total or Femoral Neck at or below -2.5 Previous Exams: -- Region Exam Age BMD T-score BMD Change BMD Change Date g/cm2 vs Baseline vs Previous -- AP Spine (L1-L4) 10/30/2023 83 0.785 -2.4 -0.086 (-9.9%)# -0.086 (-9.9%)# 12/04/2018 78 0.871 -1.6 Total Hip(Left) 10/30/2023 83 0.711 -1.9 -0.059 (-7.7%)# -0.059 (-7.7%)# 12/04/2018 78 0.770 -1.4 Total Hip(Right) 10/30/2023 83 0.644 -2.4 -0.054 (-7.7%)# -0.054 (-7.7%)# 12/04/2018 78 0.698 -2.0 -- *Denotes significance at 95% confidence level, LSC for AP Spine = 0.022 g/cm2, LSC for Total Hip = 0.027 g/cm2 # Denotes dissimilar scan types or analysis methods Impression: The patient has osteoporosis, based on the Right Femoral Neck T-score. No significant bone loss was observed. Discussion: INCREASED RISK OF FRACTURE. BONE DENSITY IS UNDESIRABLY LOW AT ONE OR MORE SKELETAL SITES, CONSISTENT WITH POSTMENOPAUSAL OSTEOPOROSIS. This patient's lowest T-score meets the World Health Organization's (WHO) criteria for osteoporosis at one or more sites (T-score -2.5 or below). In untreated patients, the risk of osteoporotic fracture increases approximately two-fold for each 1.0 SD decrease in T-score. Low bone density is not the only risk factor for fracture; also consider factors such as patient's age, frailty or poor health, risk of falling, risk of injury, previous osteoporotic fracture, family history of osteoporosis, cigarette smoking, low body weight, etc. Not everyone with low bone mineral density has osteoporosis; osteomalacia and other metabolic bone disorders should also be considered. Patients who have osteoporosis should be evaluated for specific diseases and conditions (secondary causes) that may cause or contribute to bone loss. The [place] [employer] Endocrinologists (AACE) and National Osteoporosis Foundation (NOF) recommend pharmacologic intervention for all postmenopausal women whose T-score is in this range. The patient should follow a healthful lifestyle (good nutrition with adequate calcium and vitamin D, and appropriate weight-bearing exercise). Follow-Up: Consider a repeat BMD and Vertebral Fracture Assessment (VFA) exam in 2 years or sooner if medically necessary, to reassess this patient's status. Reported by: [facility] JOLENE BOB M.D. on 10/30/2023 10:08:00 AM.
== END ==
LOC: RAD 09:42
PROVIDERS: PCP Internal Medicine; Referring Provider Internal Medicine; Visit Provider Internal Medicine
DX: M81.0 Age-related osteoporosis without current pathological fracture (principal)
CPT/HCPCS: 77080

== ENCOUNTER → 2024-02-20 09:39 | Outpatient (CLI) | payer MEDICARE, OTHER, SELFPAY ==
[2023-03-11 17:43] VITALS: BMI 20.1
[2024-02-20 10:42] LABS: Hematocrit 40.6 % (36-46); Mean Corpuscular HGB Conc 34.6 % (30-36); Mean Corpuscular Hemoglobin 30.9 PG (26-34); Mean Corpuscular Volume 89.2 fL (80-100); Platelet Count 319 X10^3/uL (150-400); Red Blood Cell Count 4.55 X10^6/uL (4.0-5.2); Red Cell Distribution Width 13.8 % (11.6-14.8); White Blood Cell Count 6.5 X10^3/uL (4.5-11.0)
[2024-02-20 11:26] LABS: HEMOLYSIS 24 (0-50); Iron 134 ug/dL (37-170)
[2024-02-20 11:31] LABS: Alanine Aminotransferase 13 IU/L (<35); Albumin 4.8 g/dL (3.5-5.0); Albumin Globulin Ratio 2.1 (1.0-2.8); Alkaline Phosphatase 103 U/L (38-126); Aspartate Aminotransferase 26 IU/L (14-36); BUN Creatinine Ratio 16.7 (6-22); Bilirubin Total 1.1 mg/dL (0.2-1.3); Blood Urea Nitrogen 21 mg/dL (7-17); C-Reactive Protein Quant < 0.5 mg/dL (<1.0); Carbon Dioxide 24 mmol/L (22-32); Chloride 100 mmol/L (98-107); Cholesterol 226 mg/dL (140-199); Erythrocyte Sedimentation Rate 4 MM/HR (0-20); Estimated Glomerular Filt Rate 42 mL/min (>60); Globulin 2.3 g/dL (1.7-4.1); Glucose 103 mg/dL (80-110); HDL Cholesterol 95 mg/dL (40-60); HEMOLYSIS < 15 (0-50); LDL Cholesterol Calculated 111 mg/dL (<100); Potassium 4.7 mmol/L (3.4-5.1); Sodium 134 mmol/L (137-145); Total Protein 7.1 g/dL (6.3-8.2); Triglycerides 99 mg/dL (35-150)
[2024-02-20 11:36] LABS: Percent Iron Saturation 44 % (15-50); Total Iron Binding Capacity 307 ug/dL (265-497); Transferrin 243 mg/dL (206-381)
[2024-02-20 11:55] LABS: Ferritin 95 ng/mL (11-264)
[2024-02-20 12:10] LABS: Vitamin B12 936 pg/mL (239-931)
== END ==
PROVIDERS: PCP Internal Medicine; Referring Provider Internal Medicine; Visit Provider Internal Medicine
DX: E87.1 Hypo-osmolality and hyponatremia (principal); D64.9 Anemia, unspecified; E78.2 Mixed hyperlipidemia; E53.8 Deficiency of other specified B group vitamins; L12.0 Bullous pemphigoid
CPT/HCPCS: 36415; 80053; 80061; 82607; 82728; 83540; 83550; 84443; 85027; 85651; 86140

== ENCOUNTER → 2025-03-02 16:27 | Outpatient (CLI) | payer MEDICARE, OTHER, SELFPAY ==
[2025-02-09 16:25] VITALS: BMI 20.1
[2025-03-02 16:56] LABS: Appearance Urine UA CLEAR; Bilirubin Urine UA NEGATIVE (NEGATIVE); Color Urine UA YELLOW; Glucose Urine UA NEGATIVE (Negative); Ketones Urine UA NEGATIVE (NEGATIVE); Leukocyte Esterase Urine UA 1+ (NEGATIVE); Nitrite Urine UA NEGATIVE (Negative); Occult Blood Urine UA NEGATIVE (Negative); Protein Urine UA NEGATIVE (Negative); Urobilinogen Urine UA 0.2 E.U./dL (0.2)
[2025-03-02 16:58] LABS: Hematocrit 43.1 % (36-46); Hemoglobin 14.6 g/dL (12.0-16.0); Mean Corpuscular HGB Conc 33.9 % (30-36); Mean Corpuscular Hemoglobin 30.7 PG (26-34); Mean Corpuscular Volume 90.6 fL (80-100); Platelet Count 342 X10^3/uL (150-400); Red Blood Cell Count 4.76 X10^6/uL (4.0-5.2); Red Cell Distribution Width 13.2 % (11.6-14.8)
[2025-03-02 17:04] LABS: Bacteria Urine Few (2-10); Culture Indicated Urine Specimen Cultured; RBC Urine 0-1/HPF (0-5/HPF); Squamous Epithelial Cell Urine 0-1 /HPF (0-5/HPF); Urine Volume 10mL (spun); WBC Urine 10-30/HPF (0-5/HPF)
[2025-03-02 17:20] LABS: Alanine Aminotransferase 22 IU/L (<35); Albumin 4.8 g/dL (3.5-5.0); Albumin Globulin Ratio 1.6 (1.0-2.8); Alkaline Phosphatase 114 U/L (38-126); Aspartate Aminotransferase 34 IU/L (14-36); BUN Creatinine Ratio 13.1 (6-22); Bilirubin Total 0.9 mg/dL (0.2-1.3); Blood Urea Nitrogen 13 mg/dL (7-17); Calcium 9.6 mg/dL (8.4-10.2); Carbon Dioxide 24 mmol/L (22-32); Chloride 98 mmol/L (98-107); Cholesterol 205 mg/dL (140-199); Estimated Glomerular Filt Rate 56 mL/min (>60); Glucose 105 mg/dL (70-99); HEMOLYSIS < 15 (0-50); Potassium 4.2 mmol/L (3.4-5.1); Sodium 133 mmol/L (137-145); Total Protein 7.8 g/dL (6.3-8.2); Triglycerides 127 mg/dL (35-150)
[2025-03-02 17:27] LABS: HDL Cholesterol 107 mg/dL (40-60); LDL Cholesterol Calculated 73 mg/dL (<100)
[2025-03-02 17:38] LABS: Creatinine Urine Random 40.26 mg/dL
[2025-03-02 17:43] LABS: Microalbumin Urine Random < 0.6 mg/dL (0-1.6)
== END ==
PROVIDERS: PCP Internal Medicine; Referring Provider Internal Medicine; Visit Provider Internal Medicine
DX: N18.32 Chronic kidney disease, stage 3b (principal); E78.2 Mixed hyperlipidemia; R30.0 Dysuria
CPT/HCPCS: 36415; 80053; 80061; 81001; 82043; 82570; 85027; 87077; 87086; 87186

== ENCOUNTER → 2025-03-04 15:38 | Outpatient (CLI) | payer MEDICARE, OTHER, SELFPAY ==
[2025-02-09 16:25] VITALS: BMI 20.1
[2025-03-06 14:12] LABS: Fecal Immunochemical Test Negative (Negative)
== END ==
PROVIDERS: PCP Internal Medicine; Visit Provider Internal Medicine
DX: Z12.11 Encounter for screening for malignant neoplasm of colon (principal); Z86.0100 Personal history of colon polyps, unspecified
CPT/HCPCS: 82274

== ENCOUNTER 2025-04-22 09:45 | Outpatient (RCR) | payer MEDICARE, OTHER, SELFPAY ==
[2025-02-09 16:25] VITALS: BMI 20.1
--- NOTE | 2025-03-12 12:42 | OT.OPPOC ---
Physical, Occupational & Speech Therapy At [facility] Blanca Tang [id number] 1940 Visit Care Team Role Provider Type Seun Rivera MD Attending Provider Physician Primary Care Provider Referring Provider Address: [address] [place] [address], [id number] Occupational Therapy Plan of Care OT Outpatient Adult Evaluation Start: 03/12/25 11:30 Freq: Status: Active Protocol: Document 03/12/25 11:30 (Rec: 03/12/25 12:09 [id number]) General Information - Adult Visit Information Visit Number 1 of 12 Plan of Care Dates 03/12/25-06/04/25 Insurance no pre-auth;no copay;KX modifier required after 19 OT Information visits pcy Session Time Visit Start Date 03/12/25 Visit Start Time 09:45 Visit Stop Time 10:39 Setting Treatment Setting Outpatient Care Visit Type Note Type Initial Evaluation Referral Referring Physician Dr Seun Rivera Reason for Referral bilateral trigger finger Identification Identification Yes Confirmed Identification EMR Confirmed By Social Information Social History I don't have any pain but, I tend to wake up with my hands clenched in a fist Patient Questionnaires Quick Dash- Upper Extremity Quick Dash UE Score 13.6 Quick Dash UE 1 to 19% Impaired (Score 1-19) Impairment Goals Objective Measurements Objective Testing of MCP/PIP/DIP of bilateral digits 2-5 Measurements revealing symptoms consistent with Grade 2 Trigger Finger as follows: R - MCP and PIP joints of both 3rd ( middle) and 4th (ring) digits; L - PIP of 3rd (middle) digit, MCP of 4th (ring) digit, contractures of bilateral palms consistent with Grade 1 Dupuytren's contractures with ulnar drift noted bilaterally in 4th and 5th digits. AROM WFL Treatment Treatment Pt educated on anatomy and etiology of both trigger finger and Dupuytren's contractures. Introduced tendon glides/exercises for hand flexors with good return demo . Reviewed treatment and prognosis/typical clinical course for each diagnosis. Pt completed all tendon glides with noted triggering at the PIP/MCPs of both middle and ring fingers on R hand, PIP of middle and MCP of ring fingers on L hand. Educated patient on splinting with overview and purpose reviewed generally though due to complexity of splinting needs, specific recommendations and training to follow. Short Term Goals Short Term Goals 1. Pt will be indep with HEP within 4 weeks 2. 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 Pt will report compliant splint wear and independent completion of tendon glide exercises/HEP consistently at home of at least 2-3x/day within 12 weeks 2. Patient will demonstrate full active range of motion of the affected fingers (right ring and middle finger, left ring and middle finger) without clicking, catching, or locking within 12 weeks 3. Patient will be able to perform fine motor tasks (e. g., buttoning a shirt, picking up small objects) and functional auto transmission technician (e.g., holding a cup, using a tool) without pain or functional limitation due to triggering within 12 weeks Assessment/Plan Assessment Patient Response Good Rehabilitation Good Potential Impairments ADLs,Body Mechanics,Contractures,Coordination/Dexterity Identified ,Functional Activities,Range of Motion,Meaningful Activities,Stiffness,Soft Tissue Mobility Treatment Assessment 84 year old RHD female referred to occupational therapy by Dr. Seun Rivera for bilateral trigger finger. Exam findings consistent with bilateral Dupuytren's contracture as well as triggering of multiple joints of bilateral middle and ring fingers at MCP and PIP joints as noted above. Pt reports a very long gradual progression of contractures on bilateral palms but recently noticing more prominent ulnar drift of bilateral ring and pinky fingers. Pt states triggering of joints began recently within the last few months. Pt was educated on the similarities and differences between presentation and treatment for both Dupuytren's and Trigger finger as well as treatment goals and trajectory. Pt introduced to HEP with good return demo though more training needed for improved carry over, purpose and goals of splinting reviewed with patient however complete splinting recommendations to be reviewed at next session. Pt reports moderate impact on functional performance related to triggering/ contractures of hand but advises she has not had any pain related to either. Pt will benefit from ongoing skilled OT to address functional deficits, diagnosis education, splint wear and fitting, HEP progression and monitoring, and symptom management. Continue OT POC Home Exercise Flexor tendon gliding exercises Program Reviewed with Goals,Progress Being Made,Home Exercise Program Patient Patient Good Understanding Plan Length of treatment 12 (weeks) Plan of Care Start 03/12/25 Date Plan of Care End 06/04/25 Date Treatment Frequency Once a Week Treatment Duration 45 Minutes Therapeutic Contents Active Range of Motion,Client Education,Functional Activities,Home Exercise Program,Joint Protection, Manual Therapy,Education,Orthotic Fitting & Training, Self-Care,Stretching/Flexibility Activities,Therapeutic Activities,Therapeutic Exercises,Modalities Modalities As Needed Types of Modalities Contrast Bath,Cyrotherapy,Ice Massage,Other Additional Types of MHP, Paraffin Modalities Patient Instruction Home Exercise Program,Plan of Care,Questions/Concerns Patient Continue with Current Program Recommendations Functional Wrist/Hand Scan Hand Side Electronically Signed by: Pavithra Tanner OT 03/12/25 3179 If you are in agreement with this Plan of Care, please return a signed and dated copy. I have reviewed this Plan of Care and certify that the skilled therapy services above are required to meet the patient?s needs. Physician Signature Date Printed Name and Credentials Clinical Instructor Signature Printed Name and Credentials
--- NOTE | 2025-03-18 15:30 | OT.OP.TRT ---
Visit Care Team Role Provider Type Seun Rivera MD Attending Provider Physician Primary Care Provider Referring Provider Specialty: Internal Medicine Address: [address] [place] [address], [id number] Email: [email or web address] Occupational Therapy Treatment Note OT Outpatient Treatment Note - Adult Start: 03/12/25 11:30 Freq: Status: Active Protocol: Document 03/18/25 09:45 (Rec: 03/18/25 12:40 [id number]) OT Outpatient Adult Treatment Note Session Time Visit Start Date 03/18/25 Visit Start Time 09:45 Visit Stop Time 10:30 Visit Information Visit Number 2 of 12 Plan of Care Dates 03/12/25-06/04/25 Insurance no PA; no copay, KX modifier required after 19 OT Information visits pcy Setting Treatment Setting Outpatient Care Visit Type Note Type Treatment Note - Subjective Identification Type Name Identification Medical Record Reconciled With Observations I am worried about this (ulnar drift) too, will the splints help Patient/Caregiver Good Compliance with Home Exercise Program - Objective Short Term Goals 1. Pt will be indep with HEP within 4 weeks 2. 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 Pt will report compliant splint wear and independent completion of tendon glide exercises/HEP consistently at home of at least 2-3x/day within 12 weeks 2. Patient will demonstrate full active range of motion of the affected fingers (right ring and middle finger, left ring and middle finger) without clicking, catching, or locking within 12 weeks 3. Patient will be able to perform fine motor tasks (e. g., buttoning a shirt, picking up small objects) and functional immigration law specialist (e.g., holding a cup, using a tool) without pain or functional limitation due to triggering within 12 weeks - Treatment 1 Descriptor Reviewed potential splinting options to best address Dupuytrens and triggering of multiple joints on BUE. Pt was educated on purpose and function of a variety of splint options and provided a print out of available styles. Attempted to size pt for oval-8 finger brace fit however, multiple fingers were still triggering with brace donned. Pt advised to obtain a night time resting splint this week so next treatment can review use and wear instructions for night time and cross friction massage introduced this date but will need further teaching. Next session to continue to evaluate best combination of splint/braces to reduce triggering while maintaining functional use of hand. Exercises 1 Descriptor 1. Reviewed tendon glides/HEP, mod verbal cues, will need further teaching - Assessment Patient Response to Good Treatment Rehabilitation Good Potential Impairments ADLs,Body Mechanics,Contractures,Coordination/Dexterity Identified ,Flexibility,Functional Activities,Motor Function, Weakness,Range of Motion,Meaningful Activities,Soft Tissue Mobility Progress Towards Good Progress Goals Assessment of Unchanged Overall Progress Assessment of Reviewed splinting and bracing combinations to provide Improvement maximum support without compromising functional use of hands. However, oval-8 splints were fitted and did not appear to improve triggering of affected fingers. Pt was educated on night time resting splint to obtain before next treatment for review of night time resting splint wear and maintenance, further trialing and assessment needed to determine a better combination for patient to adequately brace affected fingers while also permitting functional use of hand. Will review splint combinations next session and continue to review HEP as pt continues to require mod verbal cues for good return demo. Pt will continue to benefit from skilled OT for assessment and education on splint and bracing for respective conditions as well as further education on HEP. Continue OT POC Home Exercise Tendon glides, reviewed, needs further teaching Program Reviewed with Goals,Progress Being Made,Home Exercise Program Patient/Caregiver Patient/Caregiver Good Understanding - Plan Therapy Continue with Current Program Recommendations Amount of Therapy 2-3 Months Recommended Frequency of Once a Week Treatment Length of Session 45 Minutes Therapeutic Contents Active Range of Motion,Adaptive Equipment Education, Client Education,Functional Activities,Group Therapy, Joint Protection,Manual Therapy,Education,Orthotic Fitting & Training,Self-Care,Splinting,Stretching/ Flexibility Activities,Therapeutic Activities, Therapeutic Exercises,Modalities Modalities As Needed Types of Modalities Contrast Bath,Cyrotherapy,Ice Massage,Other Additional Types of MHP, paraffin Modalities
--- NOTE | 2025-03-25 10:44 | OT.OP.TRT ---
Visit Care Team Role Provider Type Seun Rivera MD Attending Provider Physician Primary Care Provider Referring Provider Specialty: Internal Medicine Address: [address] [place] [address], [id number] Email: [email or web address] Occupational Therapy Treatment Note OT Outpatient Treatment Note - Adult Start: 03/12/25 11:30 Freq: Status: Active Protocol: Document 03/25/25 09:45 (Rec: 03/25/25 10:44 [id number]) OT Outpatient Adult Treatment Note Session Time Visit Start Date 03/25/25 Visit Start Time 09:45 Visit Stop Time 10:30 Visit Information Visit Number 3 of 12 Plan of Care Dates 03/12/25-06/04/25 Insurance no PA; no copay, KX modifier required after 19 OT Information visits pcy Setting Treatment Setting Outpatient Care Visit Type Note Type Treatment Note - Subjective Identification Type Name Identification Medical Record Reconciled With Observations I have used the night time splints once and it was a little uncomfortable but, I think I just need to get used to it Patient/Caregiver Good Compliance with Home Exercise Program - Objective Short Term Goals 1. Pt will be indep with HEP within 4 weeks 2. Pt will verbalize understanding of splint wear recommendations and skin integrity considerations with splinting within 4 weeks Usp Goals 1. Pt will report compliant splint wear and independent completion of tendon glide exercises/HEP consistently at home of at least 2-3x/day within 12 weeks 2. Patient will demonstrate full active range of motion of the affected fingers (right ring and middle finger, left ring and middle finger) without clicking, catching, or locking within 12 weeks 3. Patient will be able to perform fine motor tasks (e. g., buttoning a shirt, picking up small objects) and functional cleaner and trimmer (e.g., holding a cup, using a tool) without pain or functional limitation due to triggering within 12 weeks - Treatment 1 Descriptor Reviewed use of night time resting splint, advised it may need to be worn during the day for brief periods until able to tolerate through the night, if disrupting sleep, advised splint can be doffed in the night until she is able to tolerate. Pt advised she had attempted to shad tape triggering joints however due to tape not blocking MCPs, they would often get locked in duck hand position, splint options reviewed with patient with a plan to order an adjustable hand based PIP/MCP that can potentially be modified in clinic to address all effected fingers. Provided a print out of available styles. HEP/tendon glides reviewed as pt stating glides causing triggering and locking of all fingers of hand. Reviewed gentle PROM and how to modify tendon glides if necessary to avoid any snapping or locking with slow, gentle motions isolating each finger until triggering is reduced. Pt with good return demo and verbalized understanding. Exercises 1 Descriptor 1. Reviewed modifications of tendon glides/HEP, mod verbal cues, will need further teaching - Assessment Patient Response to Good Treatment Rehabilitation Good Potential Impairments ADLs,Body Mechanics,Contractures,Coordination/Dexterity Identified ,Flexibility,Functional Activities,Motor Function, Weakness,Range of Motion,Meaningful Activities,Soft Tissue Mobility Progress Towards Good Progress Goals Assessment of Unchanged Overall Progress Assessment of Patient continues to demonstrate medical necessity for Improvement skilled OT intervention due to persistent finger triggering and functional limitations impacting splint tolerance and exercise performance. Despite attempts at self-management (e.g., shad taping), patient reports locking at MCP joints, indicating need for clinician- guided orthotic adaptation. Collaborative discussion led to plan for customized hand-based splinting to support multiple affected digits. Patient shows good compliance and carryover of education, demonstrated appropriate modification of tendon glides to avoid locking, and exhibited accurate return demonstration with clear verbal understanding of home program adjustments. Pt will continue to benefit from skilled OT, continue OT POC Home Exercise Tendon glides, reviewed, needs further teaching Program Reviewed with Goals,Progress Being Made,Home Exercise Program Patient/Caregiver Patient/Caregiver Good Understanding - Plan Therapy Continue with Current Program Recommendations Amount of Therapy 2-3 Months Recommended Frequency of Once a Week Treatment Length of Session 45 Minutes Therapeutic Contents Active Range of Motion,Adaptive Equipment Education, Client Education,Functional Activities,Group Therapy, Joint Protection,Manual Therapy,Education,Orthotic Fitting & Training,Self-Care,Splinting,Stretching/ Flexibility Activities,Therapeutic Activities, Therapeutic Exercises,Modalities Modalities As Needed Types of Modalities Contrast Bath,Cyrotherapy,Ice Massage,Other Additional Types of MHP, paraffin Modalities
--- NOTE | 2025-04-01 11:09 | OT.OP.TRT ---
Visit Care Team Role Provider Type Seun Rivera MD Attending Provider Physician Primary Care Provider Referring Provider Specialty: Internal Medicine Address: [address] [place] [address], [id number] Email: [email or web address] Occupational Therapy Treatment Note OT Outpatient Treatment Note - Adult Start: 03/12/25 11:30 Freq: Status: Active Protocol: Document 04/01/25 10:34 (Rec: 04/01/25 11:09 [id number]) OT Outpatient Adult Treatment Note Session Time Visit Start Date 04/01/25 Visit Start Time 09:45 Visit Stop Time 10:30 Visit Information Visit Number 4 of 12 Plan of Care Dates 03/12/25-06/04/25 Insurance no PA; no copay, KX modifier required after 19 OT Information visits pcy Setting Treatment Setting Outpatient Care Visit Type Note Type Treatment Note - Subjective Identification Type Name Identification Medical Record Reconciled With Observations I got two of these (trigger finger splints) but I couldn't figure them out! I do notice the night time splints tend to make my hands trigger less in the mornings Patient/Caregiver Good Compliance with Home Exercise Program - Objective Short Term Goals 1. Pt will be indep with HEP within 4 weeks [MET 04/01/25 ] 2. 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 Pt will report compliant splint wear and independent completion of tendon glide exercises/HEP consistently at home of at least 2-3x/day within 12 weeks 2. Patient will demonstrate full active range of motion of the affected fingers (right ring and middle finger, left ring and middle finger) without clicking, catching, or locking within 12 weeks 3. Patient will be able to perform fine motor tasks (e. 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 Therapist provided total assist donning the splint with education on the purpose /positioning/wear instructions for its use. Splint blocks middle finger and therapist demonstrated how to use additional velcro to effectively shad tape the ring finger to the middle finger to provide immobilization and reduction of triggering in ring finger. Pt with fair return demo of donning splint independently with mod cues to correctly orient the brace on the hand. Pt completed good return demo of tendon glides independently and reports good compliance with tendon glides at home. During education and review of splint wear paraffin was simultaneously applied with pt reporting improved ROM of hand with decreased triggering effects, pt educated to apply heat in preparation for any activities she needs to do out of the splint as well as in prep for tendon glides to reduce triggering and inflammation. Pt inquiring regarding surgical options vs conservative management, all interventions reviewed with potential risks of each discussed, pt agrees that exhausting conservative measures before pursuing injections or surgical options is best and immobilization of joints can take 3-10 weeks to see significant benefit. Pt verbalized good understanding and is agreeable to attempting therapeutic interventions first. Pt demonstrated good understanding of purpose and management of splinting and agrees current approach appears to be the least restrictive/most functional option while effectively inhibiting triggering of joints. Pt also reports good compliance with night time resting splint and reports observation of reduced triggering in the mornings following night time splinting. - Assessment Patient Response to Good Treatment Rehabilitation Good Potential Impairments ADLs,Body Mechanics,Contractures,Coordination/Dexterity Identified ,Flexibility,Functional Activities,Motor Function, Weakness,Range of Motion,Meaningful Activities,Soft Tissue Mobility Progress Towards Good Progress Goals Assessment of Unchanged Overall Progress Assessment of Patient presents with ongoing symptoms of flexor tendon Improvement triggering of the ring and middle fingers of both hands, requiring skilled OT intervention to support conservative management and avoid potential progression toward surgical intervention. 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 Therapist provided education on correct orientation, fit, and wear schedule, including demonstration of how to use additional Velcro to shad tape the ring and middle fingers for increased joint immobilization. Patient demonstrated fair return demonstration of splint application with moderate verbal cues and showed good carryover of tendon gliding exercises, which she reports completing regularly at home with positive effects. Paraffin application was completed concurrently with splint education to reduce inflammation and improve ROM , with the patient reporting subjective decrease in triggering and improved comfort post-treatment. Patient was instructed to use heat preparatory to tendon glides and functional tasks requiring splint removal. She engaged in active clinical reasoning regarding conservative vs. surgical management and expressed willingness to continue current conservative protocols after therapist explained the typical 3?10 week timeline for joint immobilization benefits. Patient reports compliance with nighttime resting orthosis and noted decreased symptoms in the mornings. Overall, patient is demonstrating increasing self- management skills, appropriate engagement in education, and high motivation to participate in conservative care. However, skilled OT remains necessary to guide splint management, reinforce proper use, monitor symptom response, and adapt the intervention plan as needed. Continued therapy is warranted to refine splint technique, progress HEP, and evaluate therapeutic efficacy in preparation for a collaborative decision- making process regarding long-term treatment direction. Home Exercise Tendon glides, reviewed, needs further teaching Program Reviewed with Goals,Progress Being Made,Home Exercise Program Patient/Caregiver Patient/Caregiver Good Understanding - Plan Therapy Continue with Current Program Recommendations Amount of Therapy 2-3 Months Recommended Frequency of Once a Week Treatment Length of Session 45 Minutes Therapeutic Contents Active Range of Motion,Adaptive Equipment Education, Client Education,Functional Activities,Group Therapy, Joint Protection,Manual Therapy,Education,Orthotic Fitting & Training,Self-Care,Splinting,Stretching/ Flexibility Activities,Therapeutic Activities, Therapeutic Exercises,Modalities Modalities As Needed Types of Modalities Contrast Bath,Cyrotherapy,Ice Massage,Other Additional Types of MHP, paraffin Modalities
--- NOTE | 2025-04-08 13:00 | OT.OP.TRT ---
Visit Care Team Role Provider Type Seun Rivera MD Attending Provider Physician Primary Care Provider Referring Provider Specialty: Internal Medicine Address: [address] [place] [address], [phone] Email: [email or web address] Occupational Therapy Treatment Note OT Outpatient Treatment Note - Adult Start: 03/12/25 11:30 Freq: Status: Active Protocol: Document 04/08/25 12:37 (Rec: 04/08/25 13:00 [id number]) OT Outpatient Adult Treatment Note Session Time Visit Start Date 04/08/25 Visit Start Time 10:45 Visit Stop Time 11:30 Visit Information Visit Number 5 of 12 Plan of Care Dates 03/12/25-06/04/25 Insurance no PA; no copay, KX modifier required after 19 OT Information visits pcy Setting Treatment Setting Outpatient Care Visit Type Note Type Treatment Note - Subjective Identification Type Name Identification Medical Record Reconciled With Observations Its not solved but it is significantly improved Patient/Caregiver Good Compliance with Home Exercise Program - Objective Short Term Goals 1. Pt will be indep with HEP within 4 weeks [MET 04/01/25 ] 2. Pt will verbalize understanding of splint wear recommendations and skin integrity considerations with splinting within 4 weeks [progressing 04/01/25] Mcfp Goals 1. Pt will report compliant splint wear and independent completion of tendon glide exercises/HEP consistently at home of at least 2-3x/day within 12 weeks 2. Patient will demonstrate full active range of motion of the affected fingers (right ring and middle finger, left ring and middle finger) without clicking, catching, or locking within 12 weeks 3. Patient will be able to perform fine motor tasks (e. 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 During today's session, patient reported successful self- management using a shad taping technique, securing the ring finger to the middle finger splint on the R hand using Velcro. She reports this method has been comfortable and is contributing to noticeable improvements in both Dupuytren?s-related contracture and frequency of triggering episodes. Patient presents with bilateral finger triggering (R > L) and Dupuytren?s contracture, primarily affecting the MCP joints of the ring and middle fingers. During today's session, patient reported successful self- management using a shad taping technique, securing the ring finger to the middle finger splint on the R hand using Velcro. She reports this method has been comfortable and is contributing to noticeable improvements in both Dupuytren?s-related contracture and frequency of triggering episodes. Patient described a consistent orthotic routine, wearing the shad tape and trigger splint on the R hand during the day and transitioning to a resting night splint at night, while applying the trigger splint to the L hand. She reports this has been well tolerated with no adverse effects. Patient demonstrated excellent compliance with her home tendon glide program, performing all exercises independently during today?s session with accurate technique and no need for therapist cues. She reported that triggering is now minimal and typically only occurs with abrupt, unconscious finger extension, while slow, controlled AROM such as during tendon glides results in significantly reduced symptoms. Cross-friction massage was performed to both palms for 10 minutes, with particular focus on areas of palpable tension in the thenar and hypothenar eminences. Patient denied tenderness or discomfort throughout and responded positively to manual intervention. Education was provided on self-massage techniques for continued benefit at home. Exercises 1 Descriptor 1. Reviewed modifications of tendon glides/HEP, mod verbal cues, will need further teaching - Assessment Patient Response to Good Treatment Rehabilitation Good Potential Impairments ADLs,Body Mechanics,Contractures,Coordination/Dexterity Identified ,Flexibility,Functional Activities,Motor Function, Weakness,Range of Motion,Meaningful Activities,Soft Tissue Mobility Progress Towards Good Progress Goals Assessment of Unchanged Overall Progress Assessment of Patient demonstrates good compliance and positive Improvement response to conservative management of bilateral trigger fingers and Dupuytren?s contracture. Effective use of shad taping and splint rotation strategy is contributing to improved symptom control, with decreased frequency of triggering and improved tolerance of ADLs. Patient performs home tendon glides independently with appropriate technique and reports continued progress in symptom management. Manual therapy including cross-friction massage to the palms was well tolerated and effective in addressing myofascial tension without pain or tenderness. Patient is motivated, demonstrates strong carryover, and is receptive to education on self-management strategies. Continued skilled OT is indicated to support contracture prevention, ongoing trigger finger management, soft tissue mobility, and patient education to promote long-term functional use of bilateral upper extremities. Home Exercise Tendon glides, reviewed, needs further teaching Program Reviewed with Goals,Progress Being Made,Home Exercise Program Patient/Caregiver Patient/Caregiver Good Understanding - Plan Therapy Continue with Current Program Recommendations Amount of Therapy 2-3 Months Recommended Frequency of Once a Week Treatment Length of Session 45 Minutes Therapeutic Contents Active Range of Motion,Adaptive Equipment Education, Client Education,Functional Activities,Group Therapy, Joint Protection,Manual Therapy,Education,Orthotic Fitting & Training,Self-Care,Splinting,Stretching/ Flexibility Activities,Therapeutic Activities, Therapeutic Exercises,Modalities Modalities As Needed Types of Modalities Contrast Bath,Cyrotherapy,Ice Massage,Other Additional Types of MHP, paraffin Modalities
--- NOTE | 2025-04-22 10:43 | OT.OP.DC ---
Visit Care Team Role Provider Type Seun Rivera MD Attending Provider Physician Primary Care Provider Referring Provider Address: [address] [place] [address], [facility] Email: [email or web address] Outpatient OT Outpatient Adult Evaluation Start: 03/12/25 11:30 Freq: Status: Active Protocol: Document 03/12/25 11:30 (Rec: 03/12/25 12:09 [id number]) General Information - Adult Visit Information Visit Number 1 of 12 Plan of Care Dates 03/12/25-06/04/25 Insurance no pre-auth;no copay;KX modifier required after 19 OT Information visits pcy Session Time Visit Start Date 03/12/25 Visit Start Time 09:45 Visit Stop Time 10:39 Setting Treatment Setting Outpatient Care Visit Type Note Type Initial Evaluation Referral Referring Physician Dr Seun Rivera Reason for Referral bilateral trigger finger Identification Identification Yes Confirmed Identification EMR Confirmed By Social Information Social History I don't have any pain but, I tend to wake up with my hands clenched in a fist Patient Questionnaires Quick Dash- Upper Extremity Quick Dash UE Score 13.6 Quick Dash UE 1 to 19% Impaired (Score 1-19) Impairment Goals Objective Measurements Objective Testing of MCP/PIP/DIP of bilateral digits 2-5 Measurements revealing symptoms consistent with Grade 2 Trigger Finger as follows: R - MCP and PIP joints of both 3rd ( middle) and 4th (ring) digits; L - PIP of 3rd (middle) digit, MCP of 4th (ring) digit, contractures of bilateral palms consistent with Grade 1 Dupuytren's contractures with ulnar drift noted bilaterally in 4th and 5th digits. AROM WFL Treatment Treatment Pt educated on anatomy and etiology of both trigger finger and Dupuytren's contractures. Introduced tendon glides/exercises for hand flexors with good return demo . Reviewed treatment and prognosis/typical clinical course for each diagnosis. Pt completed all tendon glides with noted triggering at the PIP/MCPs of both middle and ring fingers on R hand, PIP of middle and MCP of ring fingers on L hand. Educated patient on splinting with overview and purpose reviewed generally though due to complexity of splinting needs, specific recommendations and training to follow. Short Term Goals Short Term Goals 1. Pt will be indep with HEP within 4 weeks 2. Pt will verbalize understanding of splint wear recommendations and skin integrity considerations with splinting within 4 weeks Penitentiary Goals Fish And Wildlife Technician Goals 1. Pt will report compliant splint wear and independent completion of tendon glide exercises/HEP consistently at home of at least 2-3x/day within 12 weeks 2. Patient will demonstrate full active range of motion of the affected fingers (right ring and middle finger, left ring and middle finger) without clicking, catching, or locking within 12 weeks 3. Patient will be able to perform fine motor tasks (e. g., buttoning a shirt, picking up small objects) and functional aviation technical systems specialist (e.g., holding a cup, using a tool) without pain or functional limitation due to triggering within 12 weeks Assessment/Plan Assessment Patient Response Good Rehabilitation Good Potential Impairments ADLs,Body Mechanics,Contractures,Coordination/Dexterity Identified ,Functional Activities,Range of Motion,Meaningful Activities,Stiffness,Soft Tissue Mobility Treatment Assessment 84 year old RHD female referred to occupational therapy by Dr. Seun Rivera for bilateral trigger finger. Exam findings consistent with bilateral Dupuytren's contracture as well as triggering of multiple joints of bilateral middle and ring fingers at MCP and PIP joints as noted above. Pt reports a very long gradual progression of contractures on bilateral palms but recently noticing more prominent ulnar drift of bilateral ring and pinky fingers. Pt states triggering of joints began recently within the last few months. Pt was educated on the similarities and differences between presentation and treatment for both Dupuytren's and Trigger finger as well as treatment goals and trajectory. Pt introduced to HEP with good return demo though more training needed for improved carry over, purpose and goals of splinting reviewed with patient however complete splinting recommendations to be reviewed at next session. Pt reports moderate impact on functional performance related to triggering/ contractures of hand but advises she has not had any pain related to either. Pt will benefit from ongoing skilled OT to address functional deficits, diagnosis education, splint wear and fitting, HEP progression and monitoring, and symptom management. Continue OT POC Home Exercise Flexor tendon gliding exercises Program Reviewed with Goals,Progress Being Made,Home Exercise Program Patient Patient Good Understanding Plan Length of treatment 12 (weeks) Plan of Care Start 03/12/25 Date Plan of Care End 06/04/25 Date Treatment Frequency Once a Week Treatment Duration 45 Minutes Therapeutic Contents Active Range of Motion,Client Education,Functional Activities,Home Exercise Program,Joint Protection, Manual Therapy,Education,Orthotic Fitting & Training, Self-Care,Stretching/Flexibility Activities,Therapeutic Activities,Therapeutic Exercises,Modalities Modalities As Needed Types of Modalities Contrast Bath,Cyrotherapy,Ice Massage,Other Additional Types of MHP, Paraffin Modalities Patient Instruction Home Exercise Program,Plan of Care,Questions/Concerns Patient Continue with Current Program Recommendations Functional Wrist/Hand Scan Hand Side Sensory Assessment Sensory Profile2 OT Outpatient Treatment Note - Adult Start: 03/12/25 11:30 Freq: Status: Active Protocol: Document 04/22/25 09:45 (Rec: 04/22/25 08:58 [id number]) OT Outpatient Adult Treatment Note Session Time Visit Start Date 04/22/25 Visit Start Time 09:45 Visit Stop Time 10:25 Visit Information Visit Number 6 of 12 Plan of Care Dates 03/12/25-06/04/25 Insurance no PA; no copay, KX modifier required after 19 OT Information visits pcy Setting Treatment Setting Outpatient Care Visit Type Note Type Treatment Note - Subjective Identification Type Name Identification Medical Record Reconciled With Observations It has gotten much better though it has been slow. But , as long as it stays like this, I am happy with the progress Patient/Caregiver Good Compliance with Home Exercise Program - Objective Short Term Goals 1. Pt will be indep with HEP within 4 weeks [MET 04/01/25 ] 2. Pt will verbalize understanding of splint wear recommendations and skin integrity considerations with splinting within 4 weeks [MET 04/22/25] Penitentiary Goals 1. Pt will report compliant splint wear and independent completion of tendon glide exercises/HEP consistently at home of at least 2-3x/day within 12 weeks [MET ] 2. Patient will demonstrate full active range of motion of the affected fingers (right ring and middle finger, left ring and middle finger) without clicking, catching, or locking within 12 weeks. [Partially Met ] 3. Patient will be able to perform fine motor tasks (e. g., buttoning a shirt, picking up small objects) and functional aviation technical systems specialist (e.g., holding a cup, using a tool) without pain or functional limitation due to triggering within 12 weeks. [MET 04/22/25] - Treatment 1 Descriptor Pt reviewed all splint wear, advised she is not able to wear night time resting splint through the night as it is quite hot but otherwise she has been compliant with both braces and noticing less triggering. She states she does not notice any functional limitations during ADL and IADL task performance and does not have pain. Educated patient on adaptive techniques such as built up handles and button fasteners to minimize triggering and flare ups. Reviewed all splint wear and patient independently verbalized appropriate monitoring of progression of both trigger finger and dupuytren's contractures and understood how to modify bracing/ splinting wear or increase/decrease restrictiveness of braces as needed during symptom exacerbation. Pt indep with return demo of HEP/tendon glides and all recommendations and verbalized good understanding of all education stating she is very happy with her progress and does not feel continued therapy is necessary at this time as she has made steady progress and feels comfortable with symptom management. - Assessment Patient Response to Good Treatment Rehabilitation Good Potential Impairments ADLs,Body Mechanics,Contractures,Coordination/Dexterity Identified ,Flexibility,Functional Activities,Motor Function, Weakness,Range of Motion,Meaningful Activities,Soft Tissue Mobility Progress Towards Good Progress,Goals Met,Appropriate for Discharge Goals Assessment of Plateaued Overall Progress Assessment of Patient has met all established short- and long-term Improvement goals. She reports decreased frequency and intensity of triggering, no current pain, and no limitations in ADL or IADL performance. Patient demonstrated independence with splint wear education and appropriate monitoring of both trigger finger and Dupuytren?s contracture symptoms. Although unable to tolerate the night resting splint through the full night due to heat, she has otherwise remained compliant with orthotic use and has learned how to adjust bracing strategies based on symptom severity. Patient independently demonstrated her home exercise program, including tendon glides, and verbalized understanding of adaptive strategies to reduce strain on flexor tendons (e.g., built-up handles, button fasteners). She expressed satisfaction with her progress and confidence in managing symptoms independently. Patient is therefore appropriate for discharge from skilled occupational therapy services at this time and will continue with a home program for ongoing symptom management and prevention of recurrence. Home Exercise Tendon glides reviewed, indep return demo Program Reviewed with Goals,Home Exercise Program Patient/Caregiver Patient/Caregiver Excellent Understanding - Plan Therapy Discharge to Home Exercise Program Recommendations Amount of Therapy No Further Therapy Recommended Frequency of No Further Therapy Treatment Length of Session 45 Minutes Therapeutic Contents Active Range of Motion,Adaptive Equipment Education, Client Education,Functional Activities,Group Therapy, Joint Protection,Manual Therapy,Education,Orthotic Fitting & Training,Self-Care,Splinting,Stretching/ Flexibility Activities,Therapeutic Activities, Therapeutic Exercises,Modalities Modalities As Needed Types of Modalities Contrast Bath,Cyrotherapy,Ice Massage,Other Additional Types of MHP, paraffin Modalities
== END 2025-04-23 12:17 | disposition home or self-care (01) ==
LOC: OT 09:45
PROVIDERS: PCP Internal Medicine; Referring Provider Internal Medicine; Visit Provider Internal Medicine
DX: M65.30 Trigger finger, unspecified finger (principal)
CPT/HCPCS: 97110; 97165; 97530